=== PATIENT | female | born 1935 | race Caucasian/White ===

== ENCOUNTER 2019-10-08 16:01 | Inpatient (IN) ==
[2019-10-08] MEDS ORDERED: INFLUENZA VIRUS VACCINE 0.5 ML SYRINGE IM ONE (18:04)
[2019-10-08 20:10] LABS: Basophils % 0.8 % (0.0-0.8); Eosinophils % 0.6 % (0.00-10.9); Hematocrit 25.3 VOL% (35.7-47.0); Hemoglobin 7.6 GM/DL (12.0-16.0); Immature Granulocytes % 1.9 %; Lymphocytes # 1.2 10*3/uL (1.4-4.0); Lymphocytes % 23.6 % (21.3-54.2); Mean Corpuscular Volume 118.2 FL (87-102); Mean Platelet Volume 14.2 FL (9.6-12.0); Monocytes % 13.1 % (1.7-12.7); NRBC # 0.02 10*3/uL; Platelet Count 197 T/CUMM (130-400); Red Blood Count 2.14 MC/CUMM (3.8-5.5); Red Cell Distribution Width 15.7 % (9.3-17.3); White Blood Count 5.2 T/CUMM (4-12)
[2019-10-08 20:36] LABS: % Iron Saturation 27.4 % (18-50); Alanine Aminotransferase 19 U/L (13-56); Albumin 2.5 G/DL (3.4-5.0); Alkaline Phosphatase 59 U/L (45-117); Aspartate Amino Transferase 19 U/L (0-37); Blood Urea Nitrogen 31 MG/DL (7-18); Calcium 9.6 MG/DL (8.5-10.1); Estimated Glom Filtration Rate 35 ML/MIN; Glucose 115 MG/DL (74-106); Iron 73 UG/DL (50-170); Iron Binding Capacity 266 UG/DL (250-450); Osmolality,Calculated 288.3 MOS/KG (273-304); Total Protein 6.3 G/DL (6.4-8.3); Troponin I < 0.015 NG/ML (0.00-0.045)
[2019-10-08 20:37] LABS: Folate 9.3 NG/ML (5.4-24.0); Vitamin B12 1050 PG/ML (211-911)
[2019-10-08 20:53] LABS: Burr Cells Few; Giant Platelets Few; Hypochromasia 1+; Macrocytosis 1+; Ovalocytes Few; Platelet Estimate Adequate
[2019-10-08] MEDS: ATENOLOL 50 MG TABLET PO SCH (22:02)
[2019-10-08] MEDS: rOPINIRole 1 MG TABLET PO SCH (22:02)
[2019-10-09 00:44] LABS: Apearance,Urine CLEAR (Clear); Bilirubin,Urine Negative (Negative); Blood, Urine Negative (Negative); Glucose,Urine (UA) Negative (Negative); Hyaline Casts,Urine 1 /LPF (0-3); Ketones,Urine Negative (Negative); Mucus,Urine Occasional /LPF (Occasional); Nitrite,Urine Negative (Negative); Protein,Urine Negative; RBC,Urine 3 /HPF (0-4); Squamous Epithelial Cell,Urine Occasional /HPF (0-10); Urine Color Yellow (Yellow); Urine Specific Gravity 1.047 (1.001-1.035); Urine Urobilinogen < 2.0 EU/DL (0.2-1.0); WBC,Urine 2 /HPF (0-6)
[2019-10-09] MEDS ORDERED: FUROSEMIDE 40 MG/4 ML VIAL IV ONE (02:27)
[2019-10-09] MEDS ORDERED: hydrALAZINE 20 MG/1 ML VIAL IM PRN (02:28)
[2019-10-09] MEDS ORDERED: hydrALAZINE 20 MG/1 ML VIAL IV PRN (04:28)
[2019-10-09 05:49] LABS: Calcium 9.9 MG/DL (8.5-10.1); Osmolality,Calculated 285.4 MOS/KG (273-304)
[2019-10-09 05:54] LABS: Basophils % 0.8 % (0.0-0.8); Eosinophils % 0.8 % (0.00-10.9); Hematocrit 29.7 VOL% (35.7-47.0); Hemoglobin 9.1 GM/DL (12.0-16.0); Immature Granulocytes % 1.5 %; Immature Granulocytes Absolute 0.07 #; Lymphocytes # 1.4 10*3/uL (1.4-4.0); Lymphocytes % 29.7 % (21.3-54.2); Mean Corpuscular HGB Conc 30.6 GM/DL (32-36); Mean Corpuscular Volume 120.7 FL (87-102); Mean Platelet Volume 14.2 FL (9.6-12.0); Monocytes % 13.5 % (1.7-12.7); NRBC # 0.02 10*3/uL; Neutrophils % 53.7 % (38.7-73.9); Platelet Count 131 T/CUMM (130-400); Red Blood Count 2.46 MC/CUMM (3.8-5.5); Red Cell Distribution Width 15.9 % (9.3-17.3); White Blood Count 4.7 T/CUMM (4-12)
[2019-10-09 06:21] LABS: Platelet Estimate Decreased
[2019-10-09] MEDS ORDERED: MAGNESIUM SULF RIDER 4 GM in PREMIX 1 EACH IV PRN (07:48)
[2019-10-09] MEDS ORDERED: ERGOCALCIFEROL 50,000 UNIT CAPSULE PO SCH (09:00)
[2019-10-09] MEDS: amLODIPine 5 MG TABLET PO SCH (09:29)
[2019-10-09] MEDS: CYANOCOBALAMIN 500 MCG TABLET PO SCH (09:29)
[2019-10-09] MEDS: LOSARTAN 50 MG TABLET PO SCH (09:29)
[2019-10-09] MEDS: MAGNESIUM CHLORIDE 64 MG TABLET PO SCH (09:29)
[2019-10-09] MEDS: DULoxetine 30 MG CAPSULE PO SCH (09:29)
[2019-10-09] MEDS: PANTOPRAZOLE 40 MG TABLET PO SCH (09:29)
[2019-10-09] MEDS: ATENOLOL 50 MG TABLET PO SCH ×3 (09:30→22:30)
[2019-10-09] MEDS: MAGNESIUM SULF RIDER 2 GM in PREMIX 1 EACH IV PRN (09:30)
[2019-10-09] MEDS: VITAMIN E 1000 UNIT CAPSULE PO SCH (10:45)
[2019-10-09] MEDS: FUROSEMIDE 40 MG/4 ML VIAL IV SCH ×2 (13:07→16:04)
[2019-10-09] MEDS: rOPINIRole 1 MG TABLET PO SCH (22:25)
[2019-10-10 05:33] LABS: Basophils % 0.5 % (0.0-0.8); Eosinophils % 0.4 % (0.00-10.9); Hematocrit 27.4 VOL% (35.7-47.0); Hemoglobin 8.5 GM/DL (12.0-16.0); Immature Granulocytes % 1.3 %; Immature Granulocytes Absolute 0.07 #; Lymphocytes # 1.1 10*3/uL (1.4-4.0); Lymphocytes % 20.1 % (21.3-54.2); Mean Corpuscular Volume 115.1 FL (87-102); Mean Platelet Volume 13.6 FL (9.6-12.0); Monocytes % 15.6 % (1.7-12.7); Neutrophils % 62.1 % (38.7-73.9); Platelet Count 225 T/CUMM (130-400); Red Blood Count 2.38 MC/CUMM (3.8-5.5); Red Cell Distribution Width 15.9 % (9.3-17.3); White Blood Count 5.6 T/CUMM (4-12)
[2019-10-10 05:59] LABS: Calcium 9.5 MG/DL (8.5-10.1)
[2019-10-10 06:01] LABS: Band Neutrophils 1 % (0-10); Eosinophils 2 % (0-10); Hypochromasia 1+; Lymphocytes 21 % (20-55); Ovalocytes Slight; Platelet Estimate Adequate; Segmented Neutrophils 65 % (50-85); Total Cells Counted 100
[2019-10-10] MEDS: LOSARTAN 50 MG TABLET PO SCH (10:02)
[2019-10-10] MEDS: PANTOPRAZOLE 40 MG TABLET PO SCH (10:02)
[2019-10-10] MEDS: amLODIPine 5 MG TABLET PO SCH (10:02)
[2019-10-10] MEDS: ATENOLOL 50 MG TABLET PO SCH ×3 (10:02→21:33)
[2019-10-10] MEDS: DULoxetine 30 MG CAPSULE PO SCH (10:03)
[2019-10-10] MEDS: VITAMIN E 1000 UNIT CAPSULE PO SCH (10:03)
[2019-10-10] MEDS: CYANOCOBALAMIN 500 MCG TABLET PO SCH (10:03)
[2019-10-10] MEDS: MAGNESIUM CHLORIDE 64 MG TABLET PO SCH (10:03)
[2019-10-10] MEDS: FUROSEMIDE 40 MG/4 ML VIAL IV SCH ×2 (10:21→15:24)
[2019-10-10] MEDS: MAGNESIUM SULF RIDER 2 GM in PREMIX 1 EACH IV PRN (10:22)
[2019-10-10] MEDS: POTASSIUM CHLORIDE 20 MEQ TABLET PO PRN ×2 (10:22→12:16)
[2019-10-10] MEDS ORDERED: SODIUM CHLORIDE 0.9% 1,000 ML IV PRN (14:03)
[2019-10-10] MEDS: POTASSIUM CHLORIDE 20 MEQ TABLET PO SCH (15:25)
[2019-10-10] MEDS: rOPINIRole 1 MG TABLET PO SCH ×2 (15:27→21:33)
[2019-10-10] MEDS ORDERED: FUROSEMIDE 40 MG/4 ML VIAL IV ONE (17:39)
[2019-10-11 08:32] VITALS: BP 143/56
[2019-10-11 08:48] LABS: Basophils % 0.6 % (0.0-0.8); Eosinophils % 0.3 % (0.00-10.9); Immature Granulocytes % 1.3 %; Immature Granulocytes Absolute 0.08 #; Lymphocytes # 1.3 10*3/uL (1.4-4.0); Lymphocytes % 20.6 % (21.3-54.2); Mean Corpuscular HGB Conc 32.4 GM/DL (32-36); Mean Corpuscular Volume 104.5 FL (87-102); Mean Platelet Volume 13.7 FL (9.6-12.0); Monocytes % 15.4 % (1.7-12.7); Neutrophils % 61.8 % (38.7-73.9); Platelet Count 216 T/CUMM (130-400); Red Blood Count 3.54 MC/CUMM (3.8-5.5); Red Cell Distribution Width 20.9 % (9.3-17.3); White Blood Count 6.2 T/CUMM (4-12)
[2019-10-11] MEDS ORDERED: FUROSEMIDE 40 MG TABLET PO SCH (09:00)
[2019-10-11 09:02] LABS: Calcium 9.8 MG/DL (8.5-10.1); Osmolality,Calculated 283.5 MOS/KG (273-304)
[2019-10-11] MEDS: ATENOLOL 50 MG TABLET PO SCH (09:15)
[2019-10-11] MEDS: POTASSIUM CHLORIDE 20 MEQ TABLET PO SCH (09:16)
[2019-10-11] MEDS: VITAMIN E 1000 UNIT CAPSULE PO SCH (09:16)
[2019-10-11] MEDS: CYANOCOBALAMIN 500 MCG TABLET PO SCH (09:16)
[2019-10-11] MEDS: MAGNESIUM CHLORIDE 64 MG TABLET PO SCH (09:17)
[2019-10-11] MEDS: LOSARTAN 50 MG TABLET PO SCH (09:17)
[2019-10-11] MEDS: rOPINIRole 1 MG TABLET PO SCH (09:18)
[2019-10-11] MEDS: amLODIPine 5 MG TABLET PO SCH (09:18)
[2019-10-11] MEDS: DULoxetine 30 MG CAPSULE PO SCH (09:18)
[2019-10-11] MEDS: PANTOPRAZOLE 40 MG TABLET PO SCH (09:18)
== END 2019-10-11 11:34 | disposition home or self-care (01) | DRG 291 ==
LOC: N.TELEN 16:49
PROVIDERS: ADMIT Internal Medicine Cardiovascular Disease; ATTEND Internal Medicine Cardiovascular Disease

== ENCOUNTER 2020-02-11 12:50 | Observation (INO) ==
[2020-02-11] MEDS ORDERED: ONDANSETRON 4 MG/2 ML VIAL IV STA ×2 (13:13→14:32)
[2020-02-11] MEDS ORDERED: HYDROmorphone 2 MG/1 ML VIAL IV STA ×2 (13:13→15:28)
[2020-02-11] MEDS ORDERED: SODIUM CHLORIDE 0.9% 500 ML IV STA (13:13)
[2020-02-11] MEDS ORDERED: PIPERACILLIN/TAZOBACTAM 3,375 MG in SODIUM CHLORIDE 0.9% 100 ML IV STA (14:22)
[2020-02-11 14:28] LABS: Apearance,Urine CLEAR (Clear); Bilirubin,Urine Negative (Negative); Blood, Urine Negative (Negative); Glucose,Urine (UA) Negative (Negative); Ketones,Urine 5 mg/dL (Negative); Mucus,Urine Occasional /LPF (Occasional); Nitrite,Urine Negative (Negative); Protein,Urine Negative; RBC,Urine 1 /HPF (0-4); Urine Color Yellow (Yellow); Urine Specific Gravity 1.012 (1.001-1.035); Urine Urobilinogen < 2.0 EU/DL (0.2-1.0); WBC,Urine <1 /HPF (0-6)
[2020-02-11 14:42] LABS: Basophils % 0.4 % (0.0-0.8); Hematocrit 26.2 VOL% (35.7-47.0); Immature Granulocytes % 1.3 %; Immature Granulocytes Absolute 0.07 #; Lymphocytes # 0.4 10*3/uL (1.4-4.0); Lymphocytes % 8.1 % (21.3-54.2); Mean Corpuscular HGB Conc 30.5 GM/DL (32-36); Mean Corpuscular Volume 118.6 FL (87-102); Mean Platelet Volume 12.9 FL (9.6-12.0); Monocytes % 9.9 % (1.7-12.7); Neutrophils % 80.3 % (38.7-73.9); Platelet Count 191 T/CUMM (130-400); Red Blood Count 2.21 MC/CUMM (3.8-5.5); Red Cell Distribution Width 15.1 % (9.3-17.3); White Blood Count 5.4 T/CUMM (4-12)
[2020-02-11 15:02] LABS: Albumin 2.4 G/DL (3.4-5.0); Bilirubin,Total 0.8 MG/DL (0.2-1.0); Calcium 8.9 MG/DL (8.5-10.1); Osmolality,Calculated 280.7 MOS/KG (273-304); Total Protein 6.9 G/DL (6.4-8.3)
[2020-02-11] MEDS ORDERED: SODIUM CHLORIDE 0.9% 1,000 ML IV STA (15:06)
[2020-02-11] MEDS ORDERED: PROMETHAZINE 25 MG/1 ML VIAL IM STA (15:28)
[2020-02-11] MEDS ORDERED: SIMETHICONE CHEW 125 MG TABLET PO PRN (16:01)
[2020-02-11] MEDS ORDERED: DEXTROSE 10% 250 ML BAG IV PRN (16:01)
[2020-02-11] MEDS ORDERED: PROMETHAZINE 25 MG/1 ML VIAL IM PRN (16:01)
[2020-02-11] MEDS ORDERED: GLUCAGON 1 MG VIAL IM PRN (16:01)
[2020-02-11] MEDS ORDERED: ONDANSETRON 4 MG/2 ML VIAL IV PRN (16:01)
[2020-02-11] MEDS ORDERED: ZALEPLON 5 MG CAPSULE PO PRN (16:01)
[2020-02-11] MEDS ORDERED: ACETAMINOPHEN 325 MG TABLET PO PRN (16:01)
[2020-02-11] MEDS ORDERED: HYDROmorphone 2 MG/1 ML VIAL IV PRN (16:11)
[2020-02-11] MEDS ORDERED: SODIUM CHLORIDE 0.9% 1,000 ML IV SCH (16:30)
[2020-02-11] MEDS ORDERED: hydrALAZINE 20 MG/1 ML VIAL IV PRN (17:50)
[2020-02-11] MEDS: rOPINIRole 1 MG TABLET PO SCH (20:35)
[2020-02-11] MEDS: PIPERACILLIN/TAZOBACTAM 3,375 MG in SODIUM CHLORIDE 0.9% 100 ML IV SCH (23:39)
[2020-02-12] MEDS: PIPERACILLIN/TAZOBACTAM 3,375 MG in SODIUM CHLORIDE 0.9% 100 ML IV SCH ×3 (06:22→22:07)
[2020-02-12 07:13] LABS: Basophils % 0.5 % (0.0-0.8); Eosinophils % 0.2 % (0.00-10.9); Hematocrit 24.9 VOL% (35.7-47.0); Hemoglobin 7.4 GM/DL (12.0-16.0); Immature Granulocytes % 4.4 %; Immature Granulocytes Absolute 0.19 #; Lymphocytes # 1.1 10*3/uL (1.4-4.0); Lymphocytes % 25.1 % (21.3-54.2); Mean Corpuscular HGB Conc 29.7 GM/DL (32-36); Mean Corpuscular Volume 120.3 FL (87-102); Mean Platelet Volume 13.1 FL (9.6-12.0); Monocytes % 13.3 % (1.7-12.7); Neutrophils % 56.5 % (38.7-73.9); Platelet Count 181 T/CUMM (130-400); Red Blood Count 2.07 MC/CUMM (3.8-5.5); Red Cell Distribution Width 15.7 % (9.3-17.3); White Blood Count 4.3 T/CUMM (4-12)
[2020-02-12 07:41] LABS: Albumin 2.3 G/DL (3.4-5.0); Bilirubin,Total 0.4 MG/DL (0.2-1.0); Calcium 8.8 MG/DL (8.5-10.1); Osmolality,Calculated 279.4 MOS/KG (273-304); Platelet Estimate Normal; Total Protein 6.4 G/DL (6.4-8.3)
[2020-02-12 07:42] LABS: Anisocytosis 1+; Macrocytosis 1+
[2020-02-12 08:04] LABS: Folate 9.8 NG/ML (5.4-24.0)
[2020-02-12] MEDS: DULoxetine 30 MG CAPSULE PO SCH (09:07)
[2020-02-12] MEDS: CYANOCOBALAMIN 500 MCG TABLET PO SCH (09:07)
[2020-02-12] MEDS: rOPINIRole 1 MG TABLET PO SCH ×3 (09:07→20:38)
[2020-02-12] MEDS: FUROSEMIDE 40 MG TABLET PO SCH (09:08)
[2020-02-12] MEDS: LOSARTAN 50 MG TABLET PO SCH (09:08)
[2020-02-12] MEDS: PANTOPRAZOLE 40 MG TABLET PO SCH (09:09)
[2020-02-12] MEDS ORDERED: oxyCODONE/ACETAMINOPHEN 5-325 MG TABLET PO PRN ×2 (12:43→12:44)
[2020-02-12 13:03] LABS: Hematocrit 23.8 VOL% (35.7-47.0); Hemoglobin 7.2 GM/DL (12.0-16.0)
[2020-02-12] MEDS: oxyCODONE/ACETAMINOPHEN 5-325 MG TABLET PO PRN ×2 (13:05→20:37)
[2020-02-12] MEDS ORDERED: SODIUM CHLORIDE 0.9% 1,000 ML IV PRN (15:12)
[2020-02-13 05:20] LABS: Basophils % 0.5 % (0.0-0.8); Eosinophils # 0.1 10*3/uL (0.0-0.87); Eosinophils % 1.4 % (0.00-10.9); Hematocrit 31.1 VOL% (35.7-47.0); Hemoglobin 9.9 GM/DL (12.0-16.0); Immature Granulocytes Absolute 0.29 #; Lymphocytes # 1.1 10*3/uL (1.4-4.0); Lymphocytes % 26.5 % (21.3-54.2); Mean Corpuscular HGB Conc 31.8 GM/DL (32-36); Mean Corpuscular Volume 106.9 FL (87-102); Mean Platelet Volume 12.7 FL (9.6-12.0); Monocytes % 12.5 % (1.7-12.7); Neutrophils % 52.1 % (38.7-73.9); Platelet Count 169 T/CUMM (130-400); Red Blood Count 2.91 MC/CUMM (3.8-5.5); White Blood Count 4.2 T/CUMM (4-12)
[2020-02-13 05:46] LABS: Calcium 8.6 MG/DL (8.5-10.1); Osmolality,Calculated 281.3 MOS/KG (273-304)
[2020-02-13 05:54] LABS: Atypical Lymphocytes Few; Band Neutrophils 5 % (0-10); Eosinophils 2 % (0-10); Hypochromasia 1+; Lymphocytes 26 % (20-55); Metamyelocytes 1 %; Segmented Neutrophils 56 % (50-85); Total Cells Counted 100
[2020-02-13 05:55] LABS: Macrocytosis 1+; Platelet Estimate Adequate
[2020-02-13] MEDS: PIPERACILLIN/TAZOBACTAM 3,375 MG in SODIUM CHLORIDE 0.9% 100 ML IV SCH (06:28)
[2020-02-13] MEDS ORDERED: MAGNESIUM SULF RIDER 4 GM in PREMIX 1 EACH IV PRN (08:02)
[2020-02-13] MEDS ORDERED: POTASSIUM CHLORIDE 20 MEQ TABLET PO ONE (08:02)
[2020-02-13] MEDS ORDERED: MAGNESIUM SULF RIDER 2 GM in PREMIX 1 EACH IV PRN (08:02)
[2020-02-13] MEDS: FUROSEMIDE 40 MG TABLET PO SCH (08:59)
[2020-02-13] MEDS: LOSARTAN 50 MG TABLET PO SCH (08:59)
[2020-02-13] MEDS: DULoxetine 30 MG CAPSULE PO SCH (08:59)
[2020-02-13] MEDS: rOPINIRole 1 MG TABLET PO SCH (08:59)
[2020-02-13] MEDS: CYANOCOBALAMIN 500 MCG TABLET PO SCH (08:59)
[2020-02-13] MEDS: PANTOPRAZOLE 40 MG TABLET PO SCH (08:59)
[2020-02-13 15:48] VITALS: BP 134/53
[2020-02-14] MEDS ORDERED: ERGOCALCIFEROL 50,000 UNIT CAPSULE PO SCH (09:00)
== END 2020-02-13 17:05 | disposition home or self-care (01) ==
LOC: N.ED 12:50 → INTOOBSV 16:01 → N.EDINP 16:01 → SUATTDRO 16:01 → N.TELES 16:57
PROVIDERS: ADMIT Internal Medicine; ATTEND Internal Medicine

== ENCOUNTER 2020-05-21 08:37 | Observation (INO) ==
[2020-05-21] MEDS ORDERED: PANTOPRAZOLE 40 MG VIAL IV STA (08:49)
[2020-05-21 09:28] LABS: Basophils % 0.4 % (0.0-0.8); Eosinophils % 0.6 % (0.00-10.9); Hematocrit 25.6 VOL% (35.7-47.0); Hemoglobin 7.8 GM/DL (12.0-16.0); Immature Granulocytes % 0.4 %; Immature Granulocytes Absolute 0.02 #; Lymphocytes % 19.5 % (21.3-54.2); Mean Corpuscular HGB Conc 30.5 GM/DL (32-36); Mean Corpuscular Volume 122.5 FL (87-102); Mean Platelet Volume 13.4 FL (9.6-12.0); Monocytes % 16.9 % (1.7-12.7); Neutrophils % 62.2 % (38.7-73.9); Platelet Count 213 T/CUMM (130-400); Red Blood Count 2.09 MC/CUMM (3.8-5.5); Red Cell Distribution Width 16.4 % (9.3-17.3); White Blood Count 5.1 T/CUMM (4-12)
[2020-05-21 09:56] LABS: Eosinophils 3 % (0-10); Hypochromasia 1+; Lymphocytes 25 % (20-55); Platelet Estimate Adequate; Segmented Neutrophils 59 % (50-85); Total Cells Counted 100
[2020-05-21 09:57] LABS: Atypical Lymphocytes Few; Macrocytosis Slight
[2020-05-21 10:42] LABS: Albumin 2.7 G/DL (3.4-5.0); Bilirubin,Total 0.4 MG/DL (0.2-1.0); Calcium 9.4 MG/DL (8.5-10.1); Osmolality,Calculated 280.7 MOS/KG (273-304); Total Protein 6.6 G/DL (6.4-8.3)
[2020-05-21 11:41] LABS: INR 1.1; PT Patient Result 11.6 SECS (9.8-11.9); Partial Thromboplastin Time 26.5 SECS (23.9-33.8)
[2020-05-21] MEDS ORDERED: SODIUM CHLORIDE 0.9% 500 ML IV STA (11:48)
[2020-05-21] MEDS ORDERED: ONDANSETRON 4 MG/2 ML VIAL IV PRN (12:02)
[2020-05-21] MEDS ORDERED: DEXTROSE 50% 25 GM/50 ML VIAL IV PRN (12:02)
[2020-05-21] MEDS ORDERED: GLUCAGON 1 MG VIAL IM PRN (12:02)
[2020-05-21] MEDS ORDERED: FUROSEMIDE 20 MG/2 ML VIAL IV PRN (12:04)
[2020-05-21] MEDS ORDERED: SODIUM CHLORIDE 0.9% 1,000 ML IV PRN (12:04)
[2020-05-21 12:22] LABS: Folate 12.3 NG/ML (5.4-24.0)
[2020-05-21 15:30] LABS: Folate 22.2 NG/ML (5.4-24.0); Vitamin B12 617 PG/ML (211-911)
[2020-05-21 15:33] LABS: Basophils % 0.3 % (0.0-0.8); Eosinophils % 0.3 % (0.00-10.9); Hematocrit 20.6 VOL% (35.7-47.0); Immature Granulocytes % 0.5 %; Immature Granulocytes Absolute 0.02 #; Lymphocytes # 0.9 10*3/uL (1.4-4.0); Lymphocytes % 21.9 % (21.3-54.2); Mean Corpuscular HGB Conc 30.6 GM/DL (32-36); Mean Corpuscular Volume 121.2 FL (87-102); Mean Platelet Volume 13.4 FL (9.6-12.0); Monocytes % 16.2 % (1.7-12.7); Neutrophils % 60.8 % (38.7-73.9); Platelet Count 175 T/CUMM (130-400); Red Cell Distribution Width 16.1 % (9.3-17.3); White Blood Count 3.9 T/CUMM (4-12)
[2020-05-21 15:37] LABS: Hemoglobin 6.3 GM/DL (12.0-16.0)
[2020-05-21 16:10] LABS: Band Neutrophils 4 % (0-10); Eosinophils 1 % (0-10); Lymphocytes 20 % (20-55); Platelet Estimate Adequate; Segmented Neutrophils 62 % (50-85); Total Cells Counted 100
[2020-05-21] MEDS: rOPINIRole 1 MG TABLET PO SCH ×2 (16:43→21:15)
[2020-05-21] MEDS: PANTOPRAZOLE 40 MG TABLET PO SCH ×2 (16:43→21:14)
[2020-05-21 17:13] LABS: Sedimentation Rate-Westergren 145 MM/HR (0-30)
[2020-05-21] MEDS: oxyCODONE/ACETAMINOPHEN 5-325 MG TABLET PO PRN (17:36)
[2020-05-21] MEDS: DOCUSATE SODIUM 100 MG CAPSULE PO SCH (21:14)
[2020-05-21] MEDS: POLYETHYLENE GLYCOL POWDER 17 GM PACK PO SCH (21:14)
[2020-05-21] MEDS: CYANOCOBALAMIN 500 MCG TABLET PO SCH (21:15)
[2020-05-22] MEDS: oxyCODONE/ACETAMINOPHEN 5-325 MG TABLET PO PRN ×3 (02:32→16:15)
[2020-05-22 02:57] LABS: Basophils % 0.5 % (0.0-0.8); Eosinophils # 0.1 10*3/uL (0.0-0.87); Eosinophils % 1.4 % (0.00-10.9); Hematocrit 26.8 VOL% (35.7-47.0); Hemoglobin 8.6 GM/DL (12.0-16.0); Immature Granulocytes % 0.2 %; Immature Granulocytes Absolute 0.01 #; Lymphocytes # 1.1 10*3/uL (1.4-4.0); Lymphocytes % 26.7 % (21.3-54.2); Mean Corpuscular HGB Conc 32.1 GM/DL (32-36); Mean Corpuscular Volume 111.7 FL (87-102); Mean Platelet Volume 13.4 FL (9.6-12.0); Monocytes % 19.2 % (1.7-12.7); Platelet Count 187 T/CUMM (130-400); White Blood Count 4.3 T/CUMM (4-12)
[2020-05-22 03:03] LABS: Osmolality,Calculated 278.7 MOS/KG (273-304)
[2020-05-22 08:49] LABS: Band Neutrophils 5 % (0-10); Eosinophils 2 % (0-10); Lymphocytes 37 % (20-55); Segmented Neutrophils 47 % (50-85); Total Cells Counted 100
[2020-05-22 08:50] LABS: Atypical Lymphocytes Few; Giant Platelets Few; Macrocytosis 1+; Ovalocytes Few; Platelet Estimate Adequate; Polychromasia Slight
[2020-05-22] MEDS ORDERED: NEBIVOLOL 10 MG PO SCH (09:00)
[2020-05-22] MEDS: FUROSEMIDE 20 MG TABLET PO SCH (09:03)
[2020-05-22] MEDS: DULoxetine 30 MG CAPSULE PO SCH (09:03)
[2020-05-22] MEDS: LOSARTAN 50 MG TABLET PO SCH (09:03)
[2020-05-22] MEDS: PANTOPRAZOLE 40 MG TABLET PO SCH ×2 (09:03→20:59)
[2020-05-22] MEDS: POLYETHYLENE GLYCOL POWDER 17 GM PACK PO SCH ×2 (09:04→20:58)
[2020-05-22] MEDS: rOPINIRole 1 MG TABLET PO SCH ×2 (13:53→20:58)
[2020-05-22] MEDS: DOCUSATE SODIUM 100 MG CAPSULE PO SCH (20:57)
[2020-05-22] MEDS: CYANOCOBALAMIN 500 MCG TABLET PO SCH (20:58)
[2020-05-23 05:23] LABS: Basophils % 0.4 % (0.0-0.8); Eosinophils # 0.1 10*3/uL (0.0-0.87); Eosinophils % 1.5 % (0.00-10.9); Hematocrit 28.5 VOL% (35.7-47.0); Hemoglobin 9.3 GM/DL (12.0-16.0); Immature Granulocytes % 0.4 %; Immature Granulocytes Absolute 0.02 #; Lymphocytes % 18.7 % (21.3-54.2); Mean Corpuscular HGB Conc 32.6 GM/DL (32-36); Mean Corpuscular Volume 110.5 FL (87-102); Mean Platelet Volume 12.8 FL (9.6-12.0); Monocytes % 14.7 % (1.7-12.7); Neutrophils % 64.3 % (38.7-73.9); Platelet Count 191 T/CUMM (130-400); Red Blood Count 2.58 MC/CUMM (3.8-5.5); Red Cell Distribution Width 18.9 % (9.3-17.3); White Blood Count 5.3 T/CUMM (4-12)
[2020-05-23] MEDS: LOSARTAN 50 MG TABLET PO SCH (08:01)
[2020-05-23] MEDS: DULoxetine 30 MG CAPSULE PO SCH (08:01)
[2020-05-23] MEDS: POLYETHYLENE GLYCOL POWDER 17 GM PACK PO SCH ×2 (08:01→21:16)
[2020-05-23] MEDS: FUROSEMIDE 20 MG TABLET PO SCH (08:01)
[2020-05-23] MEDS: PANTOPRAZOLE 40 MG TABLET PO SCH ×2 (08:01→21:15)
[2020-05-23] MEDS: oxyCODONE/ACETAMINOPHEN 5-325 MG TABLET PO PRN ×2 (08:02→21:17)
[2020-05-23] MEDS: rOPINIRole 1 MG TABLET PO SCH ×2 (15:24→21:16)
[2020-05-23] MEDS: DOCUSATE SODIUM 100 MG CAPSULE PO SCH (21:15)
[2020-05-23] MEDS: CYANOCOBALAMIN 500 MCG TABLET PO SCH (21:16)
[2020-05-24] MEDS: NEBIVOLOL 10 MG TABLET PO SCH ×2 (01:09→09:19)
[2020-05-24 05:51] LABS: Basophils % 0.4 % (0.0-0.8); Eosinophils # 0.1 10*3/uL (0.0-0.87); Eosinophils % 1.3 % (0.00-10.9); Hematocrit 30.2 VOL% (35.7-47.0); Hemoglobin 9.5 GM/DL (12.0-16.0); Immature Granulocytes % 0.2 %; Immature Granulocytes Absolute 0.01 #; Lymphocytes # 1.2 10*3/uL (1.4-4.0); Lymphocytes % 24.9 % (21.3-54.2); Mean Corpuscular HGB Conc 31.5 GM/DL (32-36); Mean Corpuscular Volume 113.5 FL (87-102); Mean Platelet Volume 13.3 FL (9.6-12.0); Neutrophils % 59.2 % (38.7-73.9); Platelet Count 199 T/CUMM (130-400); Red Blood Count 2.66 MC/CUMM (3.8-5.5); Red Cell Distribution Width 17.6 % (9.3-17.3); White Blood Count 4.8 T/CUMM (4-12)
[2020-05-24 06:00] LABS: Calcium 9.9 MG/DL (8.5-10.1); Osmolality,Calculated 277.8 MOS/KG (273-304)
[2020-05-24 06:16] LABS: Hypochromasia 1+; Microcytosis Slight; Platelet Estimate Adequate
[2020-05-24] MEDS ORDERED: LACTATED RINGERS 1,000 ML IV SCH (08:00)
[2020-05-24] MEDS: oxyCODONE/ACETAMINOPHEN 5-325 MG TABLET PO PRN (09:17)
[2020-05-24] MEDS: LOSARTAN 50 MG TABLET PO SCH (09:19)
[2020-05-24] MEDS ORDERED: LIDOCAINE 2% 5 ML VIAL ONE (10:00)
[2020-05-24] MEDS ORDERED: ETOMIDATE 20 MG/10 ML VIAL IV ONE (10:00)
[2020-05-24] MEDS ORDERED: propofoL 200 MG/20 ML VIAL IV ONE (10:00)
[2020-05-24 10:15] LABS: Hemoglobin A1 (Alkaline) 97.2 % (96.5-98.5); Hemoglobin A2 (Alkaline) 2.8 % (1.5-3.5)
[2020-05-24] MEDS: DULoxetine 30 MG CAPSULE PO SCH (13:30)
[2020-05-24] MEDS: FUROSEMIDE 20 MG TABLET PO SCH (13:30)
[2020-05-24] MEDS: rOPINIRole 1 MG TABLET PO SCH (13:31)
[2020-05-24] MEDS: PANTOPRAZOLE 40 MG TABLET PO SCH (13:31)
[2020-05-24] MEDS: POLYETHYLENE GLYCOL POWDER 17 GM PACK PO SCH (13:31)
[2020-05-24 15:12] VITALS: BP 112/48
[2020-05-25 07:02] LABS: Total Protein (Chem) 6.1 G/DL (6.4-8.3)
[2020-05-25 09:31] LABS: Albumin (SPE) Rel % 49.6 %; Alpha 1 (SPE) 0.4 G/DL (0.1-0.4); Alpha 1 (SPE) Rel % 6.3 %; Alpha 2 (SPE) 0.8 G/DL (0.4-1.0); Alpha 2 (SPE) Rel % 13.6 %; Beta (SPE) 0.6 G/DL (0.5-1.1); Beta (SPE) Rel % 9.6 %; Gamma (SPE) 1.3 G/DL (0.7-1.7)
[2020-05-25 09:38] LABS: Gamma (SPE) Rel % 20.9 %
== END 2020-05-24 17:05 | disposition home or self-care (01) ==
LOC: N.ED 08:37 → N.EDINP 08:37 → SUATTDRO 12:02 → N.3E 14:00
PROVIDERS: ADMIT Internal Medicine; ATTEND Internal Medicine Geriatric Medicine

== ENCOUNTER 2021-02-06 20:07 | Inpatient (IN) ==
[2021-02-06 20:52] LABS: Basophils # 0.1 10*3/uL (0.0-0.2); Basophils % 0.4 % (0.0-0.8); Eosinophils % 0.1 % (0.00-10.9); Hematocrit 28.9 VOL% (35.7-47.0); Immature Granulocytes % 10.2 %; Immature Granulocytes Absolute 1.47 #; Lymphocytes # 1.9 10*3/uL (1.4-4.0); Mean Corpuscular HGB Conc 31.1 GM/DL (32-36); Mean Corpuscular Volume 128.4 FL (87-102); Monocytes % 6.6 % (1.7-12.7); Neutrophils % 69.7 % (38.7-73.9); Platelet Count 231 T/CUMM (130-400); Red Blood Count 2.25 MC/CUMM (3.8-5.5); Red Cell Distribution Width 18.6 % (9.3-17.3); White Blood Count 14.4 T/CUMM (4-12)
[2021-02-06] MEDS ORDERED: SODIUM CHLORIDE 0.9% 500 ML IV STA (21:01)
[2021-02-06] MEDS ORDERED: ONDANSETRON 4 MG/2 ML VIAL IV STA (21:01)
[2021-02-06] MEDS ORDERED: MORPHINE 4 MG/1 ML VIAL IV STA (21:01)
[2021-02-06 21:03] LABS: PT Patient Result 11.1 SECS (9.8-11.9); Partial Thromboplastin Time 25.8 SECS (23.9-33.8)
[2021-02-06 21:11] LABS: Anisocytosis 1+; Band Neutrophils 4 % (0-10); Lymphocytes 17 % (20-55); Segmented Neutrophils 74 % (50-85); Total Cells Counted 100
[2021-02-06 21:12] LABS: Elliptocytes Few; Hypochromasia Slight
[2021-02-06 21:13] LABS: Platelet Estimate Adequate
[2021-02-06 21:20] LABS: Albumin 3.4 G/DL (3.4-5.0); Bilirubin,Total 0.9 MG/DL (0.2-1.0); Calcium 9.2 MG/DL (8.5-10.1); Osmolality,Calculated 287.1 MOS/KG (273-304); Potassium 3.9 MMOL/L (3.5-5.1); Total Protein 7.3 G/DL (6.4-8.2)
[2021-02-06] MEDS ORDERED: DILTIAZEM 50 MG/10 ML VIAL IV STA (22:12)
[2021-02-06] MEDS ORDERED: ENOXAPARIN 60 MG/0.6 ML SYRINGE SUBCUT SCH (23:30)
[2021-02-06] MEDS ORDERED: DILTIAZEM 25 MG/5 ML VIAL IV ONE (23:37)
[2021-02-06] MEDS ORDERED: MAGNESIUM SULF RIDER 2 GM in PREMIX 1 EACH IV PRN (23:47)
[2021-02-06] MEDS ORDERED: MAGNESIUM SULF RIDER 4 GM in PREMIX 1 EACH IV PRN (23:47)
[2021-02-06] MEDS ORDERED: DEXTROSE 50% 25 GM/50 ML VIAL IV PRN (23:47)
[2021-02-06] MEDS ORDERED: MORPHINE 4 MG/1 ML VIAL IV PRN (23:47)
[2021-02-06] MEDS ORDERED: ACETAMINOPHEN 325 MG TABLET PO PRN (23:47)
[2021-02-06] MEDS ORDERED: GLUCAGON 1 MG VIAL IM PRN (23:47)
[2021-02-06] MEDS ORDERED: ONDANSETRON 4 MG/2 ML VIAL IV PRN (23:47)
[2021-02-07] MEDS: rOPINIRole 1 MG TABLET PO SCH ×2 (00:40→20:18)
[2021-02-07] MEDS: METOPROLOL TARTRATE 50 MG TABLET PO SCH ×3 (00:40→20:18)
[2021-02-07 02:30] LABS: Bilirubin,Urine Negative (Negative); Blood, Urine Negative (Negative); Glucose,Urine (UA) Negative (Negative); Ketones,Urine Negative (Negative); Mucus,Urine Occasional /LPF (Occasional); Nitrite,Urine Negative (Negative); Protein,Urine Negative; RBC,Urine 1 /HPF (0-4); Urine Appearance CLEAR (Clear); Urine Color Yellow (Yellow); Urine Specific Gravity 1.047 (1.001-1.035); Urine Urobilinogen < 2.0 EU/DL (0.2-1.0); WBC,Urine <1 /HPF (0-6)
[2021-02-07] MEDS: FUROSEMIDE 40 MG/4 ML VIAL IV SCH ×2 (07:58→15:57)
[2021-02-07 08:11] LABS: Basophils % 0.3 % (0.0-0.8); Hemoglobin 7.7 GM/DL (12.0-16.0); Immature Granulocytes % 9.2 %; Immature Granulocytes Absolute 0.97 #; Lymphocytes # 1.2 10*3/uL (1.4-4.0); Lymphocytes % 11.6 % (21.3-54.2); Mean Corpuscular HGB Conc 30.8 GM/DL (32-36); Mean Corpuscular Volume 127.6 FL (87-102); Mean Platelet Volume 12.7 FL (9.6-12.0); Monocytes % 7.6 % (1.7-12.7); Neutrophils % 71.3 % (38.7-73.9); Platelet Count 160 T/CUMM (130-400); Red Blood Count 1.96 MC/CUMM (3.8-5.5); Red Cell Distribution Width 18.8 % (9.3-17.3); White Blood Count 10.6 T/CUMM (4-12)
[2021-02-07 08:25] LABS: Albumin 2.6 G/DL (3.4-5.0); Bilirubin,Total 1.3 MG/DL (0.2-1.0); Calcium 8.4 MG/DL (8.5-10.1); Osmolality,Calculated 286.1 MOS/KG (273-304); Potassium 4.6 MMOL/L (3.5-5.1); Risk Ratio 1.92; Total Protein 5.6 G/DL (6.4-8.2); VLDL CHOLESTEROL 13.4 MG/DL
[2021-02-07 08:36] LABS: Hypochromasia 2+; Lymphocytes 10 % (20-55); Microcytosis 1+; Platelet Estimate Adequate; Segmented Neutrophils 81 % (50-85); Total Cells Counted 100
[2021-02-07] MEDS: ASPIRIN CHEW 81 MG TABLET PO SCH (09:00)
[2021-02-07] MEDS: DULoxetine 30 MG CAPSULE PO SCH (09:00)
[2021-02-07] MEDS: predniSONE 20 MG TABLET PO SCH (09:00)
[2021-02-07] MEDS: PANTOPRAZOLE 40 MG TABLET PO SCH (09:01)
[2021-02-07] MEDS ORDERED: MAGNESIUM SULF RIDER 2 GM in PREMIX 1 EACH IV ONE (11:33)
[2021-02-07] MEDS: oxyCODONE/ACETAMINOPHEN 5-325 MG TABLET PO PRN ×2 (11:46→20:18)
[2021-02-07] MEDS: ENOXAPARIN 60 MG/0.6 ML SYRINGE SUBCUT SCH (14:38)
[2021-02-07] MEDS: ATORVASTATIN 40 MG TABLET PO SCH (20:19)
[2021-02-07] MEDS ORDERED: FUROSEMIDE 40 MG/4 ML VIAL IV ONE (23:30)
[2021-02-08] MEDS: ENOXAPARIN 60 MG/0.6 ML SYRINGE SUBCUT SCH (02:37)
[2021-02-08 05:11] LABS: Basophils % 0.2 % (0.0-0.8); Eosinophils % 0.5 % (0.00-10.9); Hemoglobin 7.3 GM/DL (12.0-16.0); Immature Granulocytes % 0.2 %; Immature Granulocytes Absolute 0.01 #; Lymphocytes # 1.1 10*3/uL (1.4-4.0); Lymphocytes % 26.4 % (21.3-54.2); Mean Corpuscular HGB Conc 31.7 GM/DL (32-36); Mean Corpuscular Volume 126.4 FL (87-102); Mean Platelet Volume 13.5 FL (9.6-12.0); Monocytes % 8.2 % (1.7-12.7); Neutrophils % 64.5 % (38.7-73.9); Red Blood Count 1.82 MC/CUMM (3.8-5.5)
[2021-02-08 05:12] LABS: Platelet Count 105 T/CUMM (130-400)
[2021-02-08 05:33] LABS: Band Neutrophils 1 % (0-10); Hypochromasia 1+; Lymphocytes 23 % (20-55); Macrocytosis 2+; Platelet Estimate Adequate; Segmented Neutrophils 71 % (50-85); Total Cells Counted 100
[2021-02-08 05:34] LABS: Calcium 8.6 MG/DL (8.5-10.1); Osmolality,Calculated 286.3 MOS/KG (273-304); Potassium 3.8 MMOL/L (3.5-5.1)
[2021-02-08] MEDS ORDERED: ENOXAPARIN 40 MG/0.4 ML SYRINGE SUBCUT SCH (09:00)
[2021-02-08] MEDS ORDERED: DULoxetine 30 MG CAPSULE PO SCH (09:00)
[2021-02-08] MEDS: predniSONE 20 MG TABLET PO SCH (09:19)
[2021-02-08] MEDS: ASPIRIN CHEW 81 MG TABLET PO SCH (09:19)
[2021-02-08] MEDS: PANTOPRAZOLE 40 MG TABLET PO SCH (09:19)
[2021-02-08] MEDS: FUROSEMIDE 40 MG/4 ML VIAL IV SCH ×2 (09:19→16:34)
[2021-02-08] MEDS: DULoxetine 30 MG CAPSULE PO SCH (09:19)
[2021-02-08] MEDS: METOPROLOL TARTRATE 50 MG TABLET PO SCH ×2 (09:20→20:41)
[2021-02-08] MEDS ORDERED: ALUM/MAG/SIMETH/LIDO VISC 1:1 30 ML BOTTLE PO ONE (09:57)
[2021-02-08] MEDS ORDERED: SODIUM CHLORIDE 0.9% 1,000 ML IV PRN (10:18)
[2021-02-08 10:32] LABS: % Iron Saturation 46.3 % (18-50); Ferritin 1267.4 ng/ml (8-252)
[2021-02-08 10:38] LABS: Basophils % 0.4 % (0.0-0.8); Eosinophils # 0.1 10*3/uL (0.0-0.87); Eosinophils % 1.2 % (0.00-10.9); Hematocrit 29.5 VOL% (35.7-47.0); Immature Granulocytes % 0.4 %; Immature Granulocytes Absolute 0.02 #; Lymphocytes # 1.4 10*3/uL (1.4-4.0); Lymphocytes % 27.9 % (21.3-54.2); Mean Corpuscular HGB Conc 31.9 GM/DL (32-36); Mean Corpuscular Volume 127.2 FL (87-102); Mean Platelet Volume 13.9 FL (9.6-12.0); Monocytes % 8.3 % (1.7-12.7); Neutrophils % 61.8 % (38.7-73.9); Red Cell Distribution Width 18.2 % (9.3-17.3); White Blood Count 5.2 T/CUMM (4-12)
[2021-02-08 10:42] LABS: Hemoglobin 9.4 GM/DL (12.0-16.0); Platelet Count 158 T/CUMM (130-400); Red Blood Count 2.32 MC/CUMM (3.8-5.5)
[2021-02-08 11:01] LABS: Band Neutrophils 9 % (0-10); Eosinophils 2 % (0-10); Lymphocytes 28 % (20-55); Macrocytosis 2+; Nucleated Red Blood Cells 1 (0-5); Platelet Estimate Normal; Segmented Neutrophils 53 % (50-85); Smudge Cells Few; Total Cells Counted 100
[2021-02-08 11:02] LABS: Anisocytosis 2+
[2021-02-08 11:03] LABS: Folate > 24.0 NG/ML (5.38-24.0); Vitamin B12 941 PG/ML (211-911)
[2021-02-08] MEDS: rOPINIRole 1 MG TABLET PO SCH (20:41)
[2021-02-08] MEDS: ATORVASTATIN 40 MG TABLET PO SCH (20:41)
[2021-02-09 05:06] LABS: Basophils % 0.2 % (0.0-0.8); Eosinophils % 0.5 % (0.00-10.9); Hematocrit 25.6 VOL% (35.7-47.0); Hemoglobin 8.2 GM/DL (12.0-16.0); Immature Granulocytes % 7.4 %; Immature Granulocytes Absolute 0.31 #; Lymphocytes # 1.4 10*3/uL (1.4-4.0); Lymphocytes % 32.3 % (21.3-54.2); Mean Corpuscular Volume 123.1 FL (87-102); Mean Platelet Volume 14.1 FL (9.6-12.0); Monocytes % 8.1 % (1.7-12.7); Neutrophils % 51.5 % (38.7-73.9); Red Blood Count 2.08 MC/CUMM (3.8-5.5); Red Cell Distribution Width 17.7 % (9.3-17.3); White Blood Count 4.2 T/CUMM (4-12)
[2021-02-09 05:10] LABS: Platelet Count 125 T/CUMM (130-400)
[2021-02-09 05:18] LABS: Osmolality,Calculated 287.4 MOS/KG (273-304); Potassium 4.2 MMOL/L (3.5-5.1)
[2021-02-09 05:25] LABS: Ferritin 1425.9 ng/ml (8-252)
[2021-02-09 05:34] LABS: Atypical Lymphocytes Few; Band Neutrophils 1 % (0-10); Eosinophils 2 % (0-10); Hypochromasia 1+; Lymphocytes 34 % (20-55); Metamyelocytes 1 %; Segmented Neutrophils 57 % (50-85); Total Cells Counted 100
[2021-02-09 05:35] LABS: Microcytosis 1+; Platelet Estimate Adequate; Polychromasia Slight
[2021-02-09] MEDS: METOPROLOL TARTRATE 50 MG TABLET PO SCH ×2 (08:57→20:27)
[2021-02-09] MEDS: ASPIRIN CHEW 81 MG TABLET PO SCH (08:57)
[2021-02-09] MEDS: predniSONE 20 MG TABLET PO SCH (08:58)
[2021-02-09] MEDS: PANTOPRAZOLE 40 MG TABLET PO SCH (08:58)
[2021-02-09] MEDS: FUROSEMIDE 40 MG/4 ML VIAL IV SCH ×2 (09:00→15:33)
[2021-02-09] MEDS: DULoxetine 20 MG CAPSULE PO SCH (09:45)
[2021-02-09] MEDS: oxyCODONE/ACETAMINOPHEN 5-325 MG TABLET PO PRN (11:40)
[2021-02-09] MEDS: LOSARTAN 25 MG TABLET PO SCH ×2 (13:46→20:26)
[2021-02-09] MEDS ORDERED: ZALEPLON 5 MG CAPSULE PO PRN (17:40)
[2021-02-09] MEDS: rOPINIRole 1 MG TABLET PO SCH (20:26)
[2021-02-09] MEDS: ATORVASTATIN 40 MG TABLET PO SCH (20:27)
[2021-02-10] MEDS: oxyCODONE/ACETAMINOPHEN 5-325 MG TABLET PO PRN (02:03)
[2021-02-10 05:20] LABS: Basophils % 0.2 % (0.0-0.8); Eosinophils % 0.2 % (0.00-10.9); Hematocrit 27.2 VOL% (35.7-47.0); Hemoglobin 8.6 GM/DL (12.0-16.0); Immature Granulocytes Absolute 0.04 #; Lymphocytes # 1.4 10*3/uL (1.4-4.0); Lymphocytes % 34.5 % (21.3-54.2); Mean Corpuscular HGB Conc 31.6 GM/DL (32-36); Mean Corpuscular Volume 125.9 FL (87-102); Mean Platelet Volume 13.8 FL (9.6-12.0); Monocytes % 10.3 % (1.7-12.7); Neutrophils % 53.8 % (38.7-73.9); Platelet Count 139 T/CUMM (130-400); Red Blood Count 2.16 MC/CUMM (3.8-5.5); Red Cell Distribution Width 17.5 % (9.3-17.3); White Blood Count 4.1 T/CUMM (4-12)
[2021-02-10 05:35] LABS: Calcium 8.8 MG/DL (8.5-10.1); Osmolality,Calculated 287.4 MOS/KG (273-304)
[2021-02-10 05:52] LABS: Band Neutrophils 1 % (0-10); Eosinophils 1 % (0-10); Lymphocytes 34 % (20-55); Platelet Estimate Normal; Segmented Neutrophils 58 % (50-85)
[2021-02-10 05:53] LABS: Hypochromasia Slight; Macrocytosis 1+; Total Cells Counted 100
[2021-02-10 06:02] LABS: Total Protein 6.5 G/DL (6.4-8.2)
[2021-02-10 09:36] LABS: Albumin (SPE) 3.9 G/DL (3.2-5.3); Albumin (SPE) Rel % 60.4 %; Alpha 1 (SPE) 0.3 G/DL (0.1-0.4); Alpha 1 (SPE) Rel % 4.2 %; Alpha 2 (SPE) 0.7 G/DL (0.4-1.0); Alpha 2 (SPE) Rel % 10.3 %; Beta (SPE) 0.6 G/DL (0.5-1.1); Total Protein (Chem) 6.5 G/DL (6.4-8.3)
[2021-02-10 09:37] LABS: Gamma (SPE) Rel % 16.1 %
[2021-02-10] MEDS: LACTATED RINGERS 1,000 ML IV SCH (10:49)
[2021-02-10] MEDS ORDERED: POTASSIUM CHLORIDE RIDER 10 MEQ in PREMIX 1 EACH IV PRN (11:17)
[2021-02-10] MEDS ORDERED: MAGNESIUM SULF RIDER 2 GM in PREMIX 1 EACH IV PRN (11:17)
[2021-02-10] MEDS: PANTOPRAZOLE 40 MG TABLET PO SCH (14:49)
[2021-02-10] MEDS: LOSARTAN 25 MG TABLET PO SCH ×2 (14:49→21:21)
[2021-02-10] MEDS: predniSONE 20 MG TABLET PO SCH (14:49)
[2021-02-10] MEDS: METOPROLOL TARTRATE 50 MG TABLET PO SCH ×2 (14:49→21:22)
[2021-02-10] MEDS: DULoxetine 20 MG CAPSULE PO SCH (14:52)
[2021-02-10] MEDS: ASPIRIN CHEW 81 MG TABLET PO SCH (14:52)
[2021-02-10] MEDS: FUROSEMIDE 40 MG/4 ML VIAL IV SCH (14:53)
[2021-02-10] MEDS: FUROSEMIDE 40 MG TABLET PO SCH (16:36)
[2021-02-10] MEDS: rOPINIRole 1 MG TABLET PO SCH (21:21)
[2021-02-10] MEDS: ATORVASTATIN 40 MG TABLET PO SCH (21:22)
[2021-02-11] MEDS: oxyCODONE/ACETAMINOPHEN 5-325 MG TABLET PO PRN (01:47)
[2021-02-11 04:46] LABS: Basophils % 0.2 % (0.0-0.8); Hematocrit 29.4 VOL% (35.7-47.0); Hemoglobin 9.7 GM/DL (12.0-16.0); Immature Granulocytes % 9.4 %; Immature Granulocytes Absolute 0.46 #; Lymphocytes # 1.3 10*3/uL (1.4-4.0); Lymphocytes % 27.3 % (21.3-54.2); Mean Corpuscular Volume 123.5 FL (87-102); Mean Platelet Volume 13.6 FL (9.6-12.0); Neutrophils % 55.1 % (38.7-73.9); Platelet Count 183 T/CUMM (130-400); Red Blood Count 2.38 MC/CUMM (3.8-5.5); Red Cell Distribution Width 17.4 % (9.3-17.3); White Blood Count 4.9 T/CUMM (4-12)
[2021-02-11 05:18] LABS: Band Neutrophils 3 % (0-10); Lymphocytes 26 % (20-55); Segmented Neutrophils 66 % (50-85); Total Cells Counted 100
[2021-02-11 05:19] LABS: Atypical Lymphocytes Few
[2021-02-11 05:20] LABS: Anisocytosis 1+; Macrocytosis 1+; Platelet Estimate Adequate
[2021-02-11 05:21] LABS: Calcium 9.2 MG/DL (8.5-10.1); Osmolality,Calculated 284.7 MOS/KG (273-304); Potassium 4.3 MMOL/L (3.5-5.1)
[2021-02-11] MEDS: FUROSEMIDE 40 MG TABLET PO SCH ×2 (09:19→16:22)
[2021-02-11] MEDS: PANTOPRAZOLE 40 MG TABLET PO SCH (09:19)
[2021-02-11] MEDS: METOPROLOL TARTRATE 50 MG TABLET PO SCH (09:19)
[2021-02-11] MEDS: ASPIRIN CHEW 81 MG TABLET PO SCH (09:19)
[2021-02-11] MEDS: LOSARTAN 25 MG TABLET PO SCH (09:19)
[2021-02-11] MEDS: DULoxetine 20 MG CAPSULE PO SCH (09:19)
[2021-02-11] MEDS: predniSONE 20 MG TABLET PO SCH (09:20)
[2021-02-11] MEDS: LACTATED RINGERS 1,000 ML IV SCH (11:52)
[2021-02-11] MEDS: SODIUM CHLORIDE 0.45% 1,000 ML IV SCH ×2 (12:17→16:22)
[2021-02-11] MEDS ORDERED: DIAZEPAM 5 MG TABLET PO ONE (14:00)
[2021-02-11] MEDS ORDERED: diphenhydrAMINE CAP 50 MG CAPSULE PO ONE (14:00)
[2021-02-11] MEDS: rOPINIRole 1 MG TABLET PO SCH ×2 (14:10→20:55)
[2021-02-11] MEDS ORDERED: HEPARIN/NACL 0.9% 2 UNITS/ML 1,000 ML IV ONE (14:38)
[2021-02-11] MEDS ORDERED: LIDOCAINE 1% 20 ML VIAL ONE (14:38)
[2021-02-11] MEDS ORDERED: fentaNYL 100 MCG/2 ML VIAL ONE (16:13)
[2021-02-11] MEDS ORDERED: MIDAZOLAM 2 MG/2 ML VIAL ONE (16:13)
[2021-02-11] MEDS: ATORVASTATIN 40 MG TABLET PO SCH (20:55)
[2021-02-11] MEDS: METOPROLOL TARTRATE 25 MG TABLET PO SCH (20:55)
[2021-02-12 06:53] LABS: Basophils % 0.6 % (0.0-0.8); Eosinophils % 0.2 % (0.00-10.9); Hematocrit 29.1 VOL% (35.7-47.0); Hemoglobin 9.4 GM/DL (12.0-16.0); Immature Granulocytes % 8.8 %; Immature Granulocytes Absolute 0.55 #; Lymphocytes # 1.8 10*3/uL (1.4-4.0); Lymphocytes % 29.4 % (21.3-54.2); Mean Corpuscular HGB Conc 32.3 GM/DL (32-36); Mean Corpuscular Volume 124.4 FL (87-102); Mean Platelet Volume 14.5 FL (9.6-12.0); Monocytes % 9.6 % (1.7-12.7); Neutrophils % 51.4 % (38.7-73.9); Platelet Count 153 T/CUMM (130-400); Red Blood Count 2.34 MC/CUMM (3.8-5.5); Red Cell Distribution Width 17.7 % (9.3-17.3); White Blood Count 6.3 T/CUMM (4-12)
[2021-02-12 07:07] LABS: Calcium 8.8 MG/DL (8.5-10.1); Osmolality,Calculated 281.8 MOS/KG (273-304); Potassium 4.3 MMOL/L (3.5-5.1)
[2021-02-12 08:17] LABS: Anisocytosis 2+; Atypical Lymphocytes Few; Band Neutrophils 7 % (0-10); Eosinophils 1 % (0-10); Lymphocytes 34 % (20-55); Macrocytosis 1+; Myelocytes 2 %; Platelet Estimate Normal; Segmented Neutrophils 48 % (50-85); Total Cells Counted 100
[2021-02-12] MEDS ORDERED: FUROSEMIDE 20 MG TABLET PO SCH (09:00)
[2021-02-12] MEDS ORDERED: LOSARTAN 25 MG TABLET PO SCH (09:00)
[2021-02-12] MEDS: LACTATED RINGERS 1,000 ML IV SCH (09:35)
[2021-02-12] MEDS: DULoxetine 20 MG CAPSULE PO SCH (09:54)
[2021-02-12] MEDS: PANTOPRAZOLE 40 MG TABLET PO SCH (09:54)
[2021-02-12] MEDS: ASPIRIN CHEW 81 MG TABLET PO SCH (09:54)
[2021-02-12] MEDS: predniSONE 20 MG TABLET PO SCH (09:54)
[2021-02-12] MEDS: oxyCODONE/ACETAMINOPHEN 5-325 MG TABLET PO PRN (09:59)
[2021-02-12] MEDS: METOPROLOL TARTRATE 25 MG TABLET PO SCH (10:14)
[2021-02-12 12:13] VITALS: BP 109/55
== END 2021-02-12 15:07 | disposition home health service (06) | DRG 287 ==
LOC: N.ED 20:07 → N.EDINP 23:03 → SUATTDRO 23:03 → INTOOBSV 23:03 → N.EDINP 02-07 15:00 → N.TELEN 02-07 15:19 → SUATTDRO 02-08 11:00
PROVIDERS: ADMIT Internal Medicine Geriatric Medicine; ATTEND Internal Medicine
PROC: CLCCHCL (ICD-10-PCS; 2021-02-11 15:15)

== ENCOUNTER 2021-08-28 19:02 | Inpatient (IN) ==
[2021-08-28] MEDS ORDERED: ONDANSETRON 4 MG/2 ML VIAL IV STA (19:20)
[2021-08-28] MEDS ORDERED: SODIUM CHLORIDE 0.9% 1,000 ML IV STA (19:20)
[2021-08-28] MEDS ORDERED: ACETAMINOPHEN 500 MG TABLET PO STA (19:22)
[2021-08-28] MEDS ORDERED: MORPHINE 2 MG/1 ML SYRINGE IV STA (19:48)
[2021-08-28 21:05] LABS: Basophils % 0.2 % (0.0-0.8); Hematocrit 21.9 VOL% (35.7-47.0); Hemoglobin 6.8 GM/DL (12.0-16.0); Immature Granulocytes % 0.9 %; Immature Granulocytes Absolute 0.05 #; Lymphocytes # 1.4 10*3/uL (1.4-4.0); Lymphocytes % 23.6 % (21.3-54.2); Mean Corpuscular HGB Conc 31.1 GM/DL (32-36); Mean Corpuscular Volume 115.3 FL (87-102); Mean Platelet Volume 12.3 FL (9.6-12.0); Monocytes % 8.7 % (1.7-12.7); Neutrophils % 66.6 % (38.7-73.9); Platelet Count 167 T/CUMM (130-400); Red Cell Distribution Width 24.5 % (9.3-17.3); White Blood Count 5.9 T/CUMM (4-12)
[2021-08-28 21:25] LABS: Albumin 2.5 G/DL (3.4-5.0); Bilirubin,Total 1.1 MG/DL (0.20-1.00); Calcium 8.7 MG/DL (8.5-10.1); Osmolality,Calculated 283.3 MOS/KG (273-304); Potassium 4.2 MMOL/L (3.5-5.1); Total Protein 7.1 G/DL (6.4-8.2)
[2021-08-28 21:33] LABS: Bacteria,Urine Occasional /HPF (Few); Bilirubin,Urine Negative (Negative); Blood, Urine Negative (Negative); Glucose,Urine (UA) Negative (Negative); Ketones,Urine Negative (Negative); Mucus,Urine Occasional /LPF (Occasional); Nitrite,Urine Negative (Negative); Protein,Urine Negative; RBC,Urine <1 /HPF (0-4); Squamous Epithelial Cell,Urine Occasional /HPF (0-10); Urine Appearance CLEAR (Clear); Urine Color Yellow (Yellow); Urine Specific Gravity 1.014 (1.001-1.035); Urine Urobilinogen < 2.0 EU/DL (0.2-1.0)
[2021-08-28 21:38] LABS: Band Neutrophils 3 % (0-10); Lymphocytes 17 % (20-55); Metamyelocytes 3 %; Segmented Neutrophils 66 % (50-85); Total Cells Counted 100
[2021-08-28 21:39] LABS: Anisocytosis 2+; Hypochromasia 1+; Platelet Estimate Adequate
[2021-08-28 21:40] LABS: Schistocytes Few
[2021-08-28] MEDS ORDERED: DICYCLOMINE 20 MG/2 ML AMP IM ONE (22:07)
[2021-08-28] MEDS ORDERED: DICYCLOMINE 20 MG/2 ML AMP IM STA (22:19)
[2021-08-29] MEDS ORDERED: PIPERACILLIN/TAZOBACTAM 3,375 MG in SODIUM CHLORIDE 0.9% 100 ML IV STA (00:23)
[2021-08-29] MEDS ORDERED: GLUCAGON 1 MG VIAL IM PRN (01:08)
[2021-08-29] MEDS ORDERED: SODIUM CHLORIDE 0.9% 1,000 ML IV PRN (01:08)
[2021-08-29] MEDS ORDERED: DEXTROSE 50% 25 GM/50 ML VIAL IV PRN (01:08)
[2021-08-29] MEDS ORDERED: ACETAMINOPHEN 325 MG TABLET PO PRN (01:10)
[2021-08-29] MEDS ORDERED: hydrALAZINE 20 MG/1 ML VIAL IV PRN (01:10)
[2021-08-29] MEDS: MORPHINE 2 MG/1 ML SYRINGE IV PRN ×3 (02:54→15:34)
[2021-08-29] MEDS: PANTOPRAZOLE 40 MG VIAL IV SCH ×3 (02:56→21:16)
[2021-08-29] MEDS: SODIUM CHLORIDE 0.9% 1,000 ML IV SCH ×2 (02:58→19:33)
[2021-08-29 04:55] LABS: % Iron Saturation 23.4 % (18-50); Albumin 2.2 G/DL (3.4-5.0); Bilirubin,Total 1.1 MG/DL (0.20-1.00); Calcium 8.2 MG/DL (8.5-10.1); Ferritin 1428.9 ng/mL (8-252); Osmolality,Calculated 281.4 MOS/KG (273-304); Potassium 3.7 MMOL/L (3.5-5.1); Total Protein 6.5 G/DL (6.4-8.2)
[2021-08-29 05:14] LABS: Folate 14.86 NG/ML (5.38-24.0); Vitamin B12 > 2000 PG/ML (211-911)
[2021-08-29 06:36] LABS: Basophils % 0.2 % (0.0-0.8); Hematocrit 20.5 VOL% (35.7-47.0); Immature Granulocytes % 11.8 %; Immature Granulocytes Absolute 0.55 #; Lymphocytes # 0.9 10*3/uL (1.4-4.0); Lymphocytes % 19.9 % (21.3-54.2); Mean Corpuscular HGB Conc 31.2 GM/DL (32-36); Mean Corpuscular Volume 117.1 FL (87-102); Mean Platelet Volume 11.3 FL (9.6-12.0); Monocytes % 11.1 % (1.7-12.7); Platelet Count 139 T/CUMM (130-400); Red Blood Count 1.75 MC/CUMM (3.8-5.5); Red Cell Distribution Width 24.4 % (9.3-17.3); White Blood Count 4.7 T/CUMM (4-12)
[2021-08-29 06:39] LABS: Hemoglobin 6.4 GM/DL (12.0-16.0)
[2021-08-29 06:59] LABS: Anisocytosis 2+; Band Neutrophils 17 % (0-10); Lymphocytes 18 % (20-55); Metamyelocytes 1 %; Platelet Estimate Adequate; Segmented Neutrophils 56 % (50-85); Tear Drop Cells Few; Total Cells Counted 100
[2021-08-29 07:00] LABS: Atypical Lymphocytes Few; Macrocytosis 1+; Spherocytes Few
[2021-08-29 07:25] LABS: INR 1.2; Partial Thromboplastin Time 28.2 SECS (23.8-32.1)
[2021-08-29 09:13] LABS: Sedimentation Rate-Westergren 125 MM/HR (0-30)
[2021-08-29] MEDS: PIPERACILLIN/TAZOBACTAM 3,375 MG in SODIUM CHLORIDE 0.9% 100 ML IV SCH ×2 (09:50→19:33)
[2021-08-29 10:15] LABS: Hemoglobin A1 (Alkaline) 98.2 % (96.5-98.5); Hemoglobin A2 (Alkaline) 1.8 % (1.5-3.5)
[2021-08-29] MEDS: ONDANSETRON 4 MG/2 ML VIAL IV PRN ×2 (12:30→21:19)
[2021-08-30] MEDS: ONDANSETRON 4 MG/2 ML VIAL IV PRN ×4 (01:15→21:15)
[2021-08-30] MEDS: MORPHINE 2 MG/1 ML SYRINGE IV PRN ×5 (01:15→21:19)
[2021-08-30] MEDS: PIPERACILLIN/TAZOBACTAM 3,375 MG in SODIUM CHLORIDE 0.9% 100 ML IV SCH ×3 (01:16→16:51)
[2021-08-30] MEDS ORDERED: LACTATED RINGERS 1,000 ML IV SCH (08:00)
[2021-08-30 08:50] LABS: Basophils % 0.6 % (0.0-0.8); Eosinophils # 0.1 10*3/uL (0.0-0.87); Eosinophils % 1.1 % (0.00-10.9); Hematocrit 27.8 VOL% (35.7-47.0); Immature Granulocytes % 11.8 %; Immature Granulocytes Absolute 0.63 #; Mean Corpuscular HGB Conc 31.7 GM/DL (32-36); Mean Corpuscular Volume 102.6 FL (87-102); Mean Platelet Volume 11.6 FL (9.6-12.0); Monocytes % 10.7 % (1.7-12.7); Neutrophils % 57.8 % (38.7-73.9); Platelet Count 146 T/CUMM (130-400); White Blood Count 5.3 T/CUMM (4-12)
[2021-08-30 08:51] LABS: Red Blood Count 2.71 MC/CUMM (3.8-5.5)
[2021-08-30 08:52] LABS: Hemoglobin 8.8 GM/DL (12.0-16.0)
[2021-08-30 09:03] LABS: Calcium 8.2 MG/DL (8.5-10.1); Osmolality,Calculated 280.3 MOS/KG (273-304); Potassium 3.7 MMOL/L (3.5-5.1)
[2021-08-30 09:09] LABS: Band Neutrophils 9 % (0-10); Eosinophils 3 % (0-10); Lymphocytes 17 % (20-55); Segmented Neutrophils 65 % (50-85); Total Cells Counted 100
[2021-08-30 09:10] LABS: Hypochromasia Slight; Macrocytosis 1+; Ovalocytes Few; Platelet Estimate Adequate
[2021-08-30 09:12] LABS: Atypical Lymphocytes Few
[2021-08-30] MEDS: PANTOPRAZOLE 40 MG VIAL IV SCH ×2 (09:46→21:21)
[2021-08-30] MEDS ORDERED: propofoL 200 MG/20 ML VIAL IV ONE (12:07)
[2021-08-30] MEDS ORDERED: LIDOCAINE 2% 5 ML VIAL ONE (12:07)
[2021-08-30] MEDS ORDERED: ETOMIDATE 20 MG/10 ML VIAL IV ONE (12:07)
[2021-08-30] MEDS ORDERED: ONDANSETRON 4 MG/2 ML VIAL IV STA (12:19)
[2021-08-30] MEDS: SODIUM CHLORIDE 0.9% 1,000 ML IV SCH (13:34)
[2021-08-31] MEDS: PIPERACILLIN/TAZOBACTAM 3,375 MG in SODIUM CHLORIDE 0.9% 100 ML IV SCH ×3 (01:06→16:49)
[2021-08-31] MEDS: ONDANSETRON 4 MG/2 ML VIAL IV PRN ×2 (01:39→10:20)
[2021-08-31] MEDS: MORPHINE 2 MG/1 ML SYRINGE IV PRN ×3 (01:41→21:29)
[2021-08-31 07:39] LABS: Basophils % 0.2 % (0.0-0.8); Eosinophils # 0.1 10*3/uL (0.0-0.87); Eosinophils % 1.2 % (0.00-10.9); Hematocrit 28.3 VOL% (35.7-47.0); Hemoglobin 8.8 GM/DL (12.0-16.0); Immature Granulocytes % 0.2 %; Immature Granulocytes Absolute 0.01 #; Lymphocytes % 19.1 % (21.3-54.2); Mean Corpuscular HGB Conc 31.1 GM/DL (32-36); Mean Corpuscular Volume 104.4 FL (87-102); Mean Platelet Volume 11.8 FL (9.6-12.0); Neutrophils % 68.3 % (38.7-73.9); Platelet Count 132 T/CUMM (130-400); Red Blood Count 2.71 MC/CUMM (3.8-5.5); Red Cell Distribution Width 27.8 % (9.3-17.3); White Blood Count 5.2 T/CUMM (4-12)
[2021-08-31 07:54] LABS: Calcium 8.2 MG/DL (8.5-10.1); Osmolality,Calculated 281.1 MOS/KG (273-304); Potassium 3.5 MMOL/L (3.5-5.1)
[2021-08-31 07:59] LABS: Band Neutrophils 1 % (0-10); Eosinophils 1 % (0-10); Lymphocytes 19 % (20-55); Segmented Neutrophils 71 % (50-85); Total Cells Counted 100
[2021-08-31 08:00] LABS: Macrocytosis 1+
[2021-08-31 08:01] LABS: Ovalocytes Slight; Platelet Estimate Adequate
[2021-08-31] MEDS: PANTOPRAZOLE 40 MG TABLET PO SCH ×2 (10:20→20:18)
[2021-08-31] MEDS: METOPROLOL TARTRATE 25 MG TABLET PO SCH ×2 (10:25→20:17)
[2021-08-31] MEDS: DULoxetine 20 MG CAPSULE PO SCH (10:25)
[2021-08-31] MEDS: rOPINIRole 1 MG TABLET PO SCH ×2 (16:50→20:17)
[2021-08-31] MEDS: ATORVASTATIN 40 MG TABLET PO SCH (20:17)
[2021-08-31] MEDS: GABAPENTIN 100 MG CAPSULE PO SCH (20:17)
[2021-09-01] MEDS: PIPERACILLIN/TAZOBACTAM 3,375 MG in SODIUM CHLORIDE 0.9% 100 ML IV SCH ×2 (01:09→09:19)
[2021-09-01 05:46] LABS: Basophils % 0.4 % (0.0-0.8); Eosinophils # 0.1 10*3/uL (0.0-0.87); Eosinophils % 1.4 % (0.00-10.9); Hematocrit 29.7 VOL% (35.7-47.0); Hemoglobin 9.3 GM/DL (12.0-16.0); Immature Granulocytes % 3.7 %; Immature Granulocytes Absolute 0.19 #; Lymphocytes # 1.4 10*3/uL (1.4-4.0); Lymphocytes % 27.4 % (21.3-54.2); Mean Corpuscular HGB Conc 31.3 GM/DL (32-36); Mean Corpuscular Volume 105.3 FL (87-102); Mean Platelet Volume 11.7 FL (9.6-12.0); Monocytes % 10.1 % (1.7-12.7); Platelet Count 129 T/CUMM (130-400); Red Blood Count 2.82 MC/CUMM (3.8-5.5); Red Cell Distribution Width 27.3 % (9.3-17.3); White Blood Count 5.1 T/CUMM (4-12)
[2021-09-01 05:55] LABS: Calcium 8.4 MG/DL (8.5-10.1); Potassium 3.9 MMOL/L (3.5-5.1)
[2021-09-01 06:04] LABS: Osmolality,Calculated 274.7 MOS/KG (273-304)
[2021-09-01 06:25] LABS: Band Neutrophils 2 % (0-10); Eosinophils 1 % (0-10); Hypochromasia 1+; Lymphocytes 28 % (20-55); Macrocytosis 1+; Ovalocytes Few; Segmented Neutrophils 57 % (50-85); Total Cells Counted 100
[2021-09-01 06:26] LABS: Anisocytosis 1+; Platelet Estimate Adequate
[2021-09-01] MEDS: DULoxetine 20 MG CAPSULE PO SCH (09:18)
[2021-09-01] MEDS: PANTOPRAZOLE 40 MG TABLET PO SCH ×2 (09:18→21:59)
[2021-09-01] MEDS: METOPROLOL TARTRATE 25 MG TABLET PO SCH ×2 (09:18→21:57)
[2021-09-01] MEDS: ONDANSETRON 4 MG/2 ML VIAL IV PRN ×2 (10:47→17:24)
[2021-09-01] MEDS: SODIUM CHLORIDE 0.9% 1,000 ML IV SCH ×2 (10:48→10:49)
[2021-09-01] MEDS: MORPHINE 2 MG/1 ML SYRINGE IV PRN ×2 (13:28→22:04)
[2021-09-01] MEDS: rOPINIRole 1 MG TABLET PO SCH ×2 (17:24→21:56)
[2021-09-01] MEDS: ATORVASTATIN 40 MG TABLET PO SCH (21:56)
[2021-09-01] MEDS: GABAPENTIN 100 MG CAPSULE PO SCH (21:59)
[2021-09-01] MEDS: cefTRIAXone 1,000 MG in SODIUM CHLORIDE 0.9% 100 ML IV SCH (22:01)
[2021-09-02 05:56] LABS: Basophils % 0.4 % (0.0-0.8); Calcium 8.3 MG/DL (8.5-10.1); Eosinophils # 0.2 10*3/uL (0.0-0.87); Eosinophils % 4.9 % (0.00-10.9); Hematocrit 28.4 VOL% (35.7-47.0); Immature Granulocytes % 0.6 %; Immature Granulocytes Absolute 0.03 #; Lymphocytes # 1.4 10*3/uL (1.4-4.0); Mean Corpuscular HGB Conc 31.7 GM/DL (32-36); Mean Corpuscular Volume 104.8 FL (87-102); Mean Platelet Volume 12.1 FL (9.6-12.0); Monocytes % 8.3 % (1.7-12.7); Neutrophils % 56.8 % (38.7-73.9); Osmolality,Calculated 275.5 MOS/KG (273-304); Platelet Count 104 T/CUMM (130-400); Potassium 3.5 MMOL/L (3.5-5.1); Red Blood Count 2.71 MC/CUMM (3.8-5.5); Red Cell Distribution Width 26.5 % (9.3-17.3); White Blood Count 4.7 T/CUMM (4-12)
[2021-09-02 06:12] LABS: Eosinophils 1 % (0-10); Lymphocytes 19 % (20-55); Platelet Estimate Adequate; Segmented Neutrophils 73 % (50-85); Total Cells Counted 100
[2021-09-02] MEDS: DULoxetine 20 MG CAPSULE PO SCH (09:55)
[2021-09-02] MEDS: PANTOPRAZOLE 40 MG TABLET PO SCH ×2 (09:56→20:15)
[2021-09-02] MEDS: METOPROLOL TARTRATE 25 MG TABLET PO SCH ×2 (09:56→20:14)
[2021-09-02] MEDS: rOPINIRole 1 MG TABLET PO SCH ×2 (17:06→20:15)
[2021-09-02] MEDS: ATORVASTATIN 40 MG TABLET PO SCH (20:13)
[2021-09-02] MEDS: GABAPENTIN 100 MG CAPSULE PO SCH (20:14)
[2021-09-02] MEDS: cefTRIAXone 1,000 MG in SODIUM CHLORIDE 0.9% 100 ML IV SCH (20:16)
[2021-09-02] MEDS: MORPHINE 2 MG/1 ML SYRINGE IV PRN (20:20)
[2021-09-03 06:00] LABS: Basophils % 0.5 % (0.0-0.8); Eosinophils # 0.1 10*3/uL (0.0-0.87); Eosinophils % 1.3 % (0.00-10.9); Hematocrit 29.1 VOL% (35.7-47.0); Immature Granulocytes % 0.3 %; Immature Granulocytes Absolute 0.01 #; Lymphocytes # 1.3 10*3/uL (1.4-4.0); Lymphocytes % 32.8 % (21.3-54.2); Mean Corpuscular HGB Conc 30.9 GM/DL (32-36); Mean Corpuscular Volume 105.4 FL (87-102); Mean Platelet Volume 11.9 FL (9.6-12.0); Neutrophils % 56.1 % (38.7-73.9); Platelet Count 122 T/CUMM (130-400); Red Blood Count 2.76 MC/CUMM (3.8-5.5); Red Cell Distribution Width 26.3 % (9.3-17.3)
[2021-09-03 06:13] LABS: Calcium 8.6 MG/DL (8.5-10.1); Osmolality,Calculated 275.5 MOS/KG (273-304); Potassium 3.8 MMOL/L (3.5-5.1)
[2021-09-03] MEDS: PANTOPRAZOLE 40 MG TABLET PO SCH (08:51)
[2021-09-03] MEDS: DULoxetine 20 MG CAPSULE PO SCH (08:51)
[2021-09-03] MEDS: METOPROLOL TARTRATE 25 MG TABLET PO SCH (08:51)
[2021-09-03 11:53] VITALS: BP 141/69
== END 2021-09-03 14:31 | disposition home health service (06) | DRG 392 ==
LOC: N.ED 19:02 → N.EDINP 08-29 01:08 → SUATTDRO 08-29 01:08 → N.5E 08-29 13:16
PROVIDERS: ADMIT Internal Medicine; ATTEND Internal Medicine

== ENCOUNTER 2022-05-30 05:53 | Inpatient (IN) ==
[2022-05-23 11:57] LABS: Hyaline Casts,Urine 48 /LPF (0-3); Mucus,Urine Occasional /LPF (Occasional); RBC,Urine 18 /HPF (0-4); Squamous Epithelial Cell,Urine Occasional /HPF (0-10)
[2022-05-23 11:58] LABS: Bilirubin,Urine Negative (Negative); Blood, Urine Negative (Negative); Glucose,Urine (UA) Negative (Negative); Ketones,Urine Trace mg/dL (Negative); Nitrite,Urine Negative (Negative); Protein,Urine Negative (Negative); Urine Appearance Slightly Hazy (Clear); Urine Color Yellow (Yellow); Urine Specific Gravity 1.025 (1.001-1.035); Urine Urobilinogen 0.2 eU/dL (<2.0)
[2022-05-30] MEDS ORDERED: VANCOMYCIN INJ 1,000 MG in SODIUM CHLORIDE 0.9% 250 ML IV ONE (06:00)
[2022-05-30 07:10] LABS: INR 1.1; PT Patient Result 12.3 SECS (10.5-12.0); Partial Thromboplastin Time 31.4 SECS (23.7-32.9)
[2022-05-30] MEDS ORDERED: LACTATED RINGERS 1,000 ML IV SCH (08:00)
[2022-05-30] MEDS ORDERED: SODIUM CHLORIDE 0.9% 250 ML IV ONE (08:28)
[2022-05-30] MEDS ORDERED: DEXMEDETOMIDINE 200 MCG/2 ML VIAL ONE (08:28)
[2022-05-30] MEDS ORDERED: KETAMINE 500 MG/10 ML VIAL ONE (08:28)
[2022-05-30] MEDS ORDERED: propofoL 200 MG/20 ML VIAL IV ONE ×2 (08:28→11:17)
[2022-05-30] MEDS ORDERED: BACITRACIN OINT 0.9 GM PACK TOP ONE (09:09)
[2022-05-30] MEDS ORDERED: oxyCODONE/ACETAMINOPHEN 5-325 MG TABLET ONE (09:14)
[2022-05-30] MEDS ORDERED: GABAPENTIN 400 MG CAPSULE ONE (09:15)
[2022-05-30] MEDS ORDERED: PANTOPRAZOLE 20 MG TABLET PO ONE (09:15)
[2022-05-30] MEDS ORDERED: ACETAMINOPHEN 325 MG TABLET ONE (09:15)
[2022-05-30] MEDS ORDERED: BUPIVACAINE SPINAL 0.75% 2 ML AMP SPINAL ONE (09:23)
[2022-05-30] MEDS ORDERED: buprenorphine HCL 0.3 MG/ML VIAL ONE (09:24)
[2022-05-30] MEDS ORDERED: ALBUMIN 5% 12.5 GM/250 ML VIAL IV ONE (09:48)
[2022-05-30] MEDS ORDERED: CALCIUM CHLORIDE 1,000 MG/10 ML VIAL IV ONE (09:48)
[2022-05-30] MEDS ORDERED: ZALEPLON 5 MG CAPSULE PO PRN (10:41)
[2022-05-30] MEDS ORDERED: MAGNESIUM HYDROXIDE SUSP 30 ML UDCUP PO PRN (10:41)
[2022-05-30] MEDS ORDERED: oxyCODONE IR 5 MG TABLET PO PRN (10:41)
[2022-05-30] MEDS ORDERED: MORPHINE 2 MG/1 ML SYRINGE IV PRN ×2 (10:41)
[2022-05-30] MEDS ORDERED: diphenhydrAMINE CAP 25 MG CAPSULE PO PRN (10:41)
[2022-05-30] MEDS ORDERED: fentaNYL 100 MCG/2 ML VIAL ONE (10:57)
[2022-05-30] MEDS ORDERED: ROCURONIUM 50 MG/5 ML VIAL IV ONE (11:17)
[2022-05-30] MEDS ORDERED: ONDANSETRON 4 MG/2 ML VIAL ONE (11:17)
[2022-05-30] MEDS ORDERED: SEVOFLURANE 1 UNIT/15 MINUTE INH ONE (11:17)
[2022-05-30] MEDS ORDERED: SUCCINYLCHOLINE 200 MG/10 ML VIAL ONE (11:17)
[2022-05-30] MEDS ORDERED: PHENYLEPHRINE 1 MG/10 ML SYRINGE IV ONE (11:49)
[2022-05-30] MEDS ORDERED: SODIUM CHLORIDE 0.9% 100 ML IV ONE (11:49)
[2022-05-30] MEDS ORDERED: TRANEXAMIC ACID 1,000 MG/10 ML VIAL ONE (11:49)
[2022-05-30] MEDS ORDERED: SODIUM CHLORIDE 0.9% 1,000 ML IV ONE (11:49)
[2022-05-30] MEDS ORDERED: LIDOCAINE 1% 5 ML VIAL ONE (12:14)
[2022-05-30] MEDS ORDERED: BUPIVACAINE MPF 0.25% 30 ML VIAL ONE (12:15)
[2022-05-30] MEDS ORDERED: ONDANSETRON 4 MG/2 ML VIAL IV PRN (12:53)
[2022-05-30] MEDS ORDERED: HYDROmorphone 1 MG/1 ML SYRINGE ONE (12:54)
[2022-05-30] MEDS: HYDROmorphone 1 MG/1 ML SYRINGE IV PRN ×2 (12:55→13:12)
[2022-05-30 13:00] LABS: Bilirubin,Urine Negative (Negative); Blood, Urine Negative (Negative); Glucose,Urine (UA) Negative (Negative); Ketones,Urine Negative (Negative); Nitrite,Urine Negative (Negative); Protein,Urine Negative (Negative); Urine Appearance Clear (Clear); Urine Color Yellow (Yellow); Urine Specific Gravity 1.025 (1.001-1.035); Urine Urobilinogen 0.2 eU/dL (<2.0); Urine pH 5.5 (4.5-8.0)
[2022-05-30 13:12] LABS: Hyaline Casts,Urine 1 /LPF (0-3); Mucus,Urine Occasional /LPF (Occasional); RBC,Urine 10 /HPF (0-4); Squamous Epithelial Cell,Urine Occasional /HPF (0-10)
[2022-05-30] MEDS: LACTATED RINGERS 1,000 ML IV SCH ×2 (15:16→22:17)
[2022-05-30] MEDS: KETOROLAC 15 MG/1 ML VIAL IV SCH ×3 (15:16→22:44)
[2022-05-30] MEDS ORDERED: TUBERCULIN SKIN TEST 0.1 ML SYRINGE INTRADERM ONE (15:47)
[2022-05-30] MEDS: METOPROLOL TARTRATE 25 MG TABLET PO SCH (20:59)
[2022-05-30] MEDS: DOCUSATE SODIUM 100 MG CAPSULE PO SCH (20:59)
[2022-05-30] MEDS: rOPINIRole 1 MG TABLET PO SCH (20:59)
[2022-05-30] MEDS: oxyCODONE/ACETAMINOPHEN 5-325 MG TABLET PO PRN (21:11)
[2022-05-31] MEDS: LACTATED RINGERS 1,000 ML IV SCH ×3 (02:51→17:48)
[2022-05-31] MEDS: FONDAPARINUX 2.5 MG/0.5 ML SYRINGE SUBCUT SCH (04:35)
[2022-05-31 05:03] LABS: Calcium 9.4 MG/DL (8.5-10.1); Potassium 4.1 MMOL/L (3.5-5.1)
[2022-05-31 05:55] LABS: Basophils % 0.3 % (0.0-0.8); Hemoglobin 7.1 GM/DL (12.0-16.0); Immature Granulocytes % 5.6 %; Immature Granulocytes Absolute 0.44 #; Lymphocytes % 12.8 % (21.3-54.2); Mean Corpuscular HGB Conc 30.9 GM/DL (32-36); Mean Corpuscular Volume 113.9 FL (87-102); Mean Platelet Volume 12.6 FL (9.6-12.0); Neutrophils % 68.3 % (38.7-73.9); Platelet Count 177 T/CUMM (130-400); Red Blood Count 2.02 MC/CUMM (3.8-5.5); Red Cell Distribution Width 24.5 % (9.3-17.3); White Blood Count 7.8 T/CUMM (4-12)
[2022-05-31 06:16] LABS: Lymphocytes 16 % (20-55); Platelet Estimate Adequate; Total Cells Counted 100
[2022-05-31] MEDS ORDERED: SODIUM CHLORIDE 0.9% 1,000 ML IV PRN (06:44)
[2022-05-31] MEDS ORDERED: FUROSEMIDE 20 MG/2 ML VIAL IV ONE (07:31)
[2022-05-31] MEDS: FUROSEMIDE 20 MG TABLET PO SCH (08:44)
[2022-05-31] MEDS: METOPROLOL TARTRATE 25 MG TABLET PO SCH ×2 (08:44→20:56)
[2022-05-31] MEDS: predniSONE 10 MG TABLET PO SCH (08:44)
[2022-05-31] MEDS: DOCUSATE SODIUM 100 MG CAPSULE PO SCH ×2 (08:44→20:57)
[2022-05-31] MEDS: oxyCODONE/ACETAMINOPHEN 5-325 MG TABLET PO PRN ×2 (10:07→16:28)
[2022-05-31] MEDS: rOPINIRole 1 MG TABLET PO SCH ×2 (14:46→20:56)
[2022-05-31] MEDS: ONDANSETRON 4 MG/2 ML VIAL IV PRN (17:48)
[2022-05-31 17:55] LABS: Hematocrit 30.5 VOL% (35.7-47.0); Hemoglobin 9.8 GM/DL (12.0-16.0)
[2022-05-31] MEDS: ATORVASTATIN 40 MG TABLET PO SCH (20:57)
[2022-06-01] MEDS: ONDANSETRON 4 MG/2 ML VIAL IV PRN (03:42)
[2022-06-01] MEDS: LACTATED RINGERS 1,000 ML IV SCH (03:48)
[2022-06-01] MEDS: FONDAPARINUX 2.5 MG/0.5 ML SYRINGE SUBCUT SCH (04:49)
[2022-06-01] MEDS: DOCUSATE SODIUM 100 MG CAPSULE PO SCH ×2 (08:20→20:22)
[2022-06-01] MEDS: FUROSEMIDE 20 MG TABLET PO SCH (08:21)
[2022-06-01] MEDS: predniSONE 10 MG TABLET PO SCH (08:21)
[2022-06-01] MEDS: METOPROLOL TARTRATE 25 MG TABLET PO SCH ×2 (08:21→20:22)
[2022-06-01] MEDS: oxyCODONE/ACETAMINOPHEN 5-325 MG TABLET PO PRN ×4 (08:21→19:46)
[2022-06-01 08:23] LABS: Basophils % 0.2 % (0.0-0.8); Eosinophils % 0.1 % (0.00-10.9); Hematocrit 30.6 VOL% (35.7-47.0); Hemoglobin 9.8 GM/DL (12.0-16.0); Immature Granulocytes % 6.5 %; Immature Granulocytes Absolute 0.66 #; Lymphocytes # 0.6 10*3/uL (1.4-4.0); Lymphocytes % 6.3 % (21.3-54.2); Mean Platelet Volume 12.7 FL (9.6-12.0); Monocytes % 9.8 % (1.7-12.7); Neutrophils % 77.1 % (38.7-73.9); Platelet Count 164 T/CUMM (130-400); Red Blood Count 3.06 MC/CUMM (3.8-5.5); Red Cell Distribution Width 27.1 % (9.3-17.3); White Blood Count 10.2 T/CUMM (4-12)
[2022-06-01] MEDS ORDERED: ONDANSETRON ODT 4 MG TABLET PO PRN (08:53)
[2022-06-01 09:05] LABS: Band Neutrophils 4 % (0-10); Lymphocytes 5 % (20-55); Platelet Estimate Adequate; Total Cells Counted 100
[2022-06-01] MEDS: rOPINIRole 1 MG TABLET PO SCH ×2 (14:20→20:22)
[2022-06-01] MEDS: OMEPRAZOLE ODT 20 MG TABLET PO SCH (16:10)
[2022-06-01] MEDS: ATORVASTATIN 40 MG TABLET PO SCH (20:22)
[2022-06-02] MEDS: FONDAPARINUX 2.5 MG/0.5 ML SYRINGE SUBCUT SCH (04:26)
[2022-06-02] MEDS: oxyCODONE/ACETAMINOPHEN 5-325 MG TABLET PO PRN ×2 (04:43→08:28)
[2022-06-02 06:20] LABS: Basophils % 0.4 % (0.0-0.8); Eosinophils # 0.1 10*3/uL (0.0-0.87); Hematocrit 30.5 VOL% (35.7-47.0); Hemoglobin 9.5 GM/DL (12.0-16.0); Immature Granulocytes % 6.8 %; Immature Granulocytes Absolute 0.52 #; Lymphocytes # 0.9 10*3/uL (1.4-4.0); Mean Corpuscular HGB Conc 31.1 GM/DL (32-36); Mean Corpuscular Volume 102.3 FL (87-102); Mean Platelet Volume 13.7 FL (9.6-12.0); Monocytes # 0.7 10*3/uL (0.11-0.8); Monocytes % 9.4 % (1.7-12.7); Neutrophils % 70.4 % (38.7-73.9); Platelet Count 134 T/CUMM (130-400); Red Blood Count 2.98 MC/CUMM (3.8-5.5); Red Cell Distribution Width 26.1 % (9.3-17.3); White Blood Count 7.7 T/CUMM (4-12)
[2022-06-02 06:49] LABS: Eosinophils 1 % (0-10); Lymphocytes 12 % (20-55); Total Cells Counted 100
[2022-06-02 06:50] LABS: Platelet Estimate Normal
[2022-06-02] MEDS: FUROSEMIDE 20 MG TABLET PO SCH (08:27)
[2022-06-02] MEDS: DOCUSATE SODIUM 100 MG CAPSULE PO SCH (08:27)
[2022-06-02] MEDS: predniSONE 10 MG TABLET PO SCH (08:27)
[2022-06-02] MEDS: METOPROLOL TARTRATE 25 MG TABLET PO SCH (08:27)
[2022-06-02] MEDS: OMEPRAZOLE ODT 20 MG TABLET PO SCH (08:27)
[2022-06-02 11:23] VITALS: BP 113/57
== END 2022-06-02 11:52 | disposition swing bed (61) | DRG 470 ==
LOC: N.SDSINP 05:53 → N.3E 14:49
PROVIDERS: ADMIT Orthopaedic Surgery; ATTEND Orthopaedic Surgery

== ENCOUNTER 2022-06-04 18:25 | Observation (INO) ==
[~2022-06-04 18:25] MED LIST: ENOXAPARIN 40 MG/0.4 ML SYRINGE SUBCUT SCH
[2022-06-04 18:57] LABS: Basophils % 0.3 % (0.0-0.8); Eosinophils % 0.3 % (0.00-10.9); Hematocrit 32.6 VOL% (35.7-47.0); Hemoglobin 10.3 GM/DL (12.0-16.0); Immature Granulocytes % 6.7 %; Immature Granulocytes Absolute 0.41 #; Lymphocytes % 16.3 % (21.3-54.2); Mean Corpuscular HGB Conc 31.6 GM/DL (32-36); Mean Corpuscular Volume 101.6 FL (87-102); Mean Platelet Volume 13.1 FL (9.6-12.0); Monocytes # 0.7 10*3/uL (0.11-0.8); Monocytes % 11.5 % (1.7-12.7); Neutrophils % 64.9 % (38.7-73.9); Platelet Count 184 T/CUMM (130-400); Red Blood Count 3.21 MC/CUMM (3.8-5.5); Red Cell Distribution Width 25.2 % (9.3-17.3); White Blood Count 6.1 T/CUMM (4-12)
[2022-06-04 19:16] LABS: Albumin 2.3 G/DL (3.4-5.0); Bilirubin,Total 0.9 MG/DL (0.20-1.00); Calcium 9.6 MG/DL (8.5-10.1); Osmolality,Calculated 290.8 MOS/KG (273-304); Total Protein 6.4 G/DL (6.4-8.2)
[2022-06-04] MEDS ORDERED: fentaNYL 100 MCG/2 ML VIAL IV STA (19:16)
[2022-06-04 19:25] LABS: Band Neutrophils 4 % (0-10); Hypochromia Slight; Lymphocytes 9 % (20-55); Ovalocytes Few
[2022-06-04 19:27] LABS: Burr Cells Slight
[2022-06-04 19:28] LABS: Total Cells Counted 100
[2022-06-04] MEDS ORDERED: DIAZEPAM 10 MG/2 ML SYRINGE IV STA (19:34)
[2022-06-04] MEDS ORDERED: SODIUM CHLORIDE 0.9% 1,000 ML IV STA (20:07)
[2022-06-04] MEDS ORDERED: CIPROFLOXACIN INJ 400 MG/200 ML PREMIX IV STA (20:10)
[2022-06-04] MEDS ORDERED: metroNIDAZOLE INJ 500 MG/100 ML PREMIX IV STA (20:10)
[2022-06-04] MEDS ORDERED: MORPHINE 2 MG/1 ML SYRINGE IV STA (21:14)
[2022-06-04] MEDS ORDERED: ONDANSETRON 4 MG/2 ML VIAL IV STA (21:15)
[2022-06-04] MEDS: rOPINIRole 1 MG TABLET PO SCH (21:25)
[2022-06-04] MEDS ORDERED: hydrALAZINE 20 MG/1 ML VIAL IV PRN (21:32)
[2022-06-04] MEDS ORDERED: MAGNESIUM SULF RIDER 4 GM/100 ML PREMIX IV PRN (21:32)
[2022-06-04] MEDS ORDERED: ACETAMINOPHEN 325 MG TABLET PO PRN (21:32)
[2022-06-04] MEDS ORDERED: MORPHINE 2 MG/1 ML SYRINGE IV PRN (21:32)
[2022-06-04] MEDS ORDERED: POTASSIUM CHLORIDE RIDER 10 MEQ/100 ML PREMIX IV PRN (21:32)
[2022-06-04] MEDS ORDERED: SIMETHICONE CHEW 125 MG TABLET PO PRN (21:32)
[2022-06-04] MEDS ORDERED: MAGNESIUM SULF RIDER 2 GM/50 ML PREMIX IV PRN (21:32)
[2022-06-04] MEDS ORDERED: GLUCAGON 1 MG VIAL IM PRN (21:32)
[2022-06-04] MEDS ORDERED: DEXTROSE 10% 250 ML BAG IV PRN (21:58)
[2022-06-04] MEDS: SODIUM CHLORIDE 0.45% 1,000 ML IV SCH (23:40)
[2022-06-05] MEDS ORDERED: tiZANidine 4 MG TABLET PO STA (00:07)
[2022-06-05] MEDS ORDERED: oxyCODONE/ACETAMINOPHEN 5-325 MG TABLET PO PRN (02:12)
[2022-06-05 06:38] LABS: Calcium 8.8 MG/DL (8.5-10.1); Osmolality,Calculated 285.1 MOS/KG (273-304); Potassium 3.6 MMOL/L (3.5-5.1)
[2022-06-05 07:34] LABS: Basophils % 0.5 % (0.0-0.8); Eosinophils % 0.3 % (0.00-10.9); Lymphocytes % 17.5 % (21.3-54.2); Mean Corpuscular HGB Conc 32.1 GM/DL (32-36); Platelet Count 155 T/CUMM (130-400)
[2022-06-05 07:39] LABS: Immature Granulocytes % 5.7 %; Immature Granulocytes Absolute 0.34 #; Mean Corpuscular Volume 100.8 FL (87-102); Mean Platelet Volume 12.7 FL (9.6-12.0); Monocytes # 0.8 10*3/uL (0.11-0.8); Monocytes % 13.8 % (1.7-12.7); Neutrophils % 62.2 % (38.7-73.9); Red Blood Count 2.38 MC/CUMM (3.8-5.5); Red Cell Distribution Width 25.3 % (9.3-17.3)
[2022-06-05 07:40] LABS: Hemoglobin 7.7 GM/DL (12.0-16.0)
[2022-06-05 07:53] LABS: Eosinophils 1 % (0-10); Lymphocytes 21 % (20-55); Platelet Estimate Adequate; Total Cells Counted 100
[2022-06-05] MEDS: metroNIDAZOLE INJ 500 MG/100 ML PREMIX IV SCH ×2 (08:12→16:53)
[2022-06-05] MEDS: POLYETHYLENE GLYCOL POWDER 17 GM PACK PO SCH ×2 (08:12→23:08)
[2022-06-05] MEDS: ATORVASTATIN 40 MG TABLET PO SCH (08:12)
[2022-06-05] MEDS: predniSONE 10 MG TABLET PO SCH (08:13)
[2022-06-05] MEDS: rOPINIRole 1 MG TABLET PO SCH ×2 (08:13→20:36)
[2022-06-05] MEDS: DOCUSATE SODIUM 100 MG CAPSULE PO SCH ×2 (08:13→20:36)
[2022-06-05] MEDS: FUROSEMIDE 20 MG TABLET PO SCH (08:13)
[2022-06-05] MEDS: FONDAPARINUX 2.5 MG/0.5 ML SYRINGE SUBCUT SCH (08:13)
[2022-06-05] MEDS: PANTOPRAZOLE 40 MG VIAL IV SCH (08:13)
[2022-06-05] MEDS: METOPROLOL TARTRATE 25 MG TABLET PO SCH ×2 (08:13→20:36)
[2022-06-05] MEDS: CIPROFLOXACIN INJ 400 MG/200 ML PREMIX IV SCH ×2 (10:37→20:43)
[2022-06-05] MEDS ORDERED: MAGNESIUM SULF RIDER 2 GM/50 ML PREMIX IV ONE (11:00)
[2022-06-05 15:25] LABS: % Iron Saturation 75.3 % (18-50)
[2022-06-05 15:40] LABS: Folate 12.72 NG/ML (5.38-24.0)
[2022-06-05] MEDS: ONDANSETRON 4 MG/2 ML VIAL IV PRN ×2 (16:59→20:36)
[2022-06-05] MEDS ORDERED: rOPINIRole 1 MG TABLET PO SCH (21:00)
[2022-06-06] MEDS: metroNIDAZOLE INJ 500 MG/100 ML PREMIX IV SCH ×3 (00:17→15:45)
[2022-06-06] MEDS: ONDANSETRON 4 MG/2 ML VIAL IV PRN ×2 (00:17→04:27)
[2022-06-06] MEDS: SODIUM CHLORIDE 0.45% 1,000 ML IV SCH ×2 (04:24→04:25)
[2022-06-06 06:24] LABS: Basophils % 0.4 % (0.0-0.8); Eosinophils % 0.4 % (0.00-10.9); Hematocrit 24.8 VOL% (35.7-47.0); Hemoglobin 7.9 GM/DL (12.0-16.0); Immature Granulocytes % 6.6 %; Immature Granulocytes Absolute 0.56 #; Lymphocytes # 1.1 10*3/uL (1.4-4.0); Lymphocytes % 12.3 % (21.3-54.2); Mean Corpuscular HGB Conc 31.9 GM/DL (32-36); Mean Corpuscular Volume 100.4 FL (87-102); Mean Platelet Volume 12.7 FL (9.6-12.0); Monocytes # 1.3 10*3/uL (0.11-0.8); Monocytes % 15.2 % (1.7-12.7); Neutrophils % 65.1 % (38.7-73.9); Platelet Count 181 T/CUMM (130-400); Red Blood Count 2.47 MC/CUMM (3.8-5.5); Red Cell Distribution Width 24.8 % (9.3-17.3); White Blood Count 8.5 T/CUMM (4-12)
[2022-06-06 06:39] LABS: Calcium 8.9 MG/DL (8.5-10.1); Potassium 3.4 MMOL/L (3.5-5.1)
[2022-06-06 06:47] LABS: Eosinophils 1 % (0-10); Lymphocytes 9 % (20-55); Platelet Estimate Adequate; Total Cells Counted 100
[2022-06-06] MEDS: FUROSEMIDE 20 MG TABLET PO SCH (08:29)
[2022-06-06] MEDS: DOCUSATE SODIUM 100 MG CAPSULE PO SCH (08:29)
[2022-06-06] MEDS: predniSONE 10 MG TABLET PO SCH (08:29)
[2022-06-06] MEDS: rOPINIRole 1 MG TABLET PO SCH (08:29)
[2022-06-06] MEDS: METOPROLOL TARTRATE 25 MG TABLET PO SCH (08:29)
[2022-06-06] MEDS: CIPROFLOXACIN INJ 400 MG/200 ML PREMIX IV SCH (08:30)
[2022-06-06] MEDS: ATORVASTATIN 40 MG TABLET PO SCH (08:30)
[2022-06-06] MEDS: PANTOPRAZOLE 40 MG VIAL IV SCH (08:31)
[2022-06-06] MEDS: FONDAPARINUX 2.5 MG/0.5 ML SYRINGE SUBCUT SCH (08:31)
[2022-06-06] MEDS: POLYETHYLENE GLYCOL POWDER 17 GM PACK PO SCH (08:31)
[2022-06-06] MEDS ORDERED: metroNIDAZOLE 500 MG TABLET PO SCH (17:00)
[2022-06-06 17:22] VITALS: BP 118/62
== END 2022-06-06 17:45 ==
LOC: EDUNIT# → EDBD → N.ED 18:25 → N.3E 18:25
PROVIDERS: ADMIT Internal Medicine; ATTEND Internal Medicine

== ENCOUNTER 2022-06-16 08:48 | Inpatient (IN) ==
[2022-06-16] MEDS ORDERED: ALBUTEROL 2.5 MG/3 ML NEB RESP TX PRN (09:16)
[2022-06-16 09:20] LABS: Basophils % 0.2 % (0.0-0.8); Eosinophils # 0.1 10*3/uL (0.0-0.87); Eosinophils % 0.8 % (0.00-10.9); Immature Granulocytes % 7.3 %; Immature Granulocytes Absolute 1.24 #; Lymphocytes # 5.8 10*3/uL (1.4-4.0); Lymphocytes % 34.2 % (21.3-54.2); Mean Platelet Volume 12.3 FL (9.6-12.0); Monocytes # 1.3 10*3/uL (0.11-0.8); Monocytes % 7.5 % (1.7-12.7); NRBC # 0.14 10*3/uL; Platelet Count 204 T/CUMM (130-400); Red Blood Count 1.77 MC/CUMM (3.8-5.5); Red Cell Distribution Width 26.7 % (9.3-17.3); White Blood Count 16.9 T/CUMM (4-12)
[2022-06-16 09:22] LABS: Hemoglobin 5.8 GM/DL (12.0-16.0)
[2022-06-16] MEDS ORDERED: SODIUM CHLORIDE 0.9% 1,000 ML IV PRN (09:23)
[2022-06-16 09:32] LABS: Arterial Base Excess iSTAT -4 MMOL/L (-2.5-2.5); Arterial Bicarbonate iSTAT 22.3 MMOL/L (20-26); Arterial O2 Saturation iSTAT 100 % (95-100); Arterial PCO2 iSTAT 46 MM HG (35-48); Arterial PO2 iSTAT 449 MM HG (80-95); Arterial Total CO2 iSTAT 24 MMO/L (23-27); Arterial pH iSTAT 7.294 (7.35-7.45)
[2022-06-16 09:45] LABS: Band Neutrophils 1 % (0-10); Burr Cells Slight; Hypochromia Slight; Lymphocytes 33 % (20-55); Macrocytosis Slight; Platelet Estimate Adequate; Total Cells Counted 100
[2022-06-16 10:04] LABS: Calcium 8.1 MG/DL (8.5-10.1); Osmolality,Calculated 292.1 MOS/KG (273-304); Potassium 3.8 MMOL/L (3.5-5.1); Thyroid Stimulating Hormone 5.97 uIU/ml (0.358-3.74); Total Protein 4.9 G/DL (6.4-8.2)
[2022-06-16] MEDS ORDERED: LABETALOL 20 MG/4 ML SYRINGE IV ONE (11:03)
[2022-06-16 11:09] LABS: Bilirubin,Urine Negative (Negative); Blood, Urine Moderate mg/dL (Negative); Glucose,Urine (UA) Negative (Negative); Ketones,Urine Negative (Negative); Mucus,Urine Occasional /LPF (Occasional); Nitrite,Urine Negative (Negative); Protein,Urine 30 mg/dL (Negative); RBC,Urine 1 /HPF (0-4); Urine Appearance Clear (Clear); Urine Color Yellow (Yellow); Urine Urobilinogen 0.2 eU/dL (<2.0)
[2022-06-16] MEDS ORDERED: GLUCAGON 1 MG VIAL IM PRN (11:13)
[2022-06-16] MEDS ORDERED: DEXTROSE 10% 250 ML BAG IV PRN (11:13)
[2022-06-16] MEDS ORDERED: LACTATED RINGERS 1,000 ML IV ONE (11:20)
[2022-06-16] MEDS ORDERED: MIDAZOLAM 2 MG/2 ML VIAL ONE (11:22)
[2022-06-16] MEDS ORDERED: MIDAZOLAM 2 MG/2 ML VIAL IV ONE (11:24)
[2022-06-16] MEDS: LACTATED RINGERS 1,000 ML IV SCH ×2 (11:27→23:40)
[2022-06-16] MEDS: PIPERACILLIN/TAZOBACTAM 3,375 MG in SODIUM CHLORIDE 0.9% 100 ML IV STA ×2 (11:28→13:45)
[2022-06-16] MEDS ORDERED: EPINEPHrine 1 MG/10 ML SYRINGE ONE (11:32)
[2022-06-16] MEDS ORDERED: EPINEPHrine 1 MG/10 ML SYRINGE IV ONE (11:33)
[2022-06-16] MEDS ORDERED: MAGNESIUM SULF RIDER 2 GM/50 ML PREMIX IV ONE (11:50)
[2022-06-16 12:26] LABS: ABG Base Excess 0.9 MMOL/L (-2.5-2.5); ABG HCO3 25.2 MMOL/L (20-26); ABG Oxygen Saturation 99.9 % (95-100); ABG PCO2 35.1 MM HG (35-48); ABG PH 7.452 (7.35-7.45); ABG TCO2 22.3 MMOL/L (23-27)
[2022-06-16] MEDS: fentaNYL INJ 1,250 MCG in SODIUM CHLORIDE 0.9% 225 ML IV PRN ×2 (13:00→23:02)
[2022-06-16 13:04] LABS: Alanine Aminotransferase 38 U/L (13-56); Albumin 2.2 G/DL (3.4-5.0); Alkaline Phosphatase 103 U/L (45-117); Aspartate Amino Transferase 61 U/L (0-37); Blood Urea Nitrogen 18 MG/DL (7-18); CKMB % 8.41 %; Calcium 8.2 MG/DL (8.5-10.1); Carbon Dioxide 24 MMOL/L (21-32); Chloride 108 MMOL/L (98-107); Glucose 165 MG/DL (74-106); Osmolality,Calculated 286.3 MOS/KG (273-304); Phosphorous 3.6 MG/DL (2.5-4.9); Potassium 3.9 MMOL/L (3.5-5.1); Sodium 141 MMOL/L (136-145); Total Protein 5.7 G/DL (6.4-8.2)
[2022-06-16 13:08] LABS: INR 1.2; PT Patient Result 12.9 SECS (10.1-12.1); Partial Thromboplastin Time 29.4 SECS (23.7-32.9)
[2022-06-16] MEDS: PIPERACILLIN/TAZOBACTAM 3,375 MG in SODIUM CHLORIDE 0.9% 100 ML IV SCH ×2 (13:35→20:15)
[2022-06-16] MEDS: INSULIN REGULAR 100 UNIT/ML IV SCH ×6 (13:38→23:32)
[2022-06-16] MEDS: AMIODARONE INJ 450 MG in DEXTROSE 5% 241 ML IV SCH (14:30)
[2022-06-16] MEDS: MEPERIDINE 25 MG/1 ML VIAL IV PRN (15:21)
[2022-06-16] MEDS: MINERAL OIL/PETROLATUM OPH OINT 3.5 GM TUBE BOTH EYES SCH ×2 (15:51→20:59)
[2022-06-16 16:10] LABS: Basophils # 0.1 10*3/uL (0.0-0.2); Basophils % 0.3 % (0.0-0.8); Hematocrit 29.5 VOL% (35.7-47.0); Hemoglobin 9.3 GM/DL (12.0-16.0); Immature Granulocytes % 8.7 %; Immature Granulocytes Absolute 1.77 #; Lymphocytes # 1.1 10*3/uL (1.4-4.0); Lymphocytes % 5.6 % (21.3-54.2); Mean Corpuscular HGB Conc 31.5 GM/DL (32-36); Mean Corpuscular Volume 96.4 FL (87-102); Mean Platelet Volume 12.2 FL (9.6-12.0); Monocytes # 1.7 10*3/uL (0.11-0.8); Monocytes % 8.3 % (1.7-12.7); NRBC # 0.03 10*3/uL; Neutrophils % 77.1 % (38.7-73.9); Platelet Count 237 T/CUMM (130-400); Red Blood Count 3.06 MC/CUMM (3.8-5.5); White Blood Count 20.3 T/CUMM (4-12)
[2022-06-16] MEDS: MIDAZOLAM 100 MG in SODIUM CHLORIDE 0.9% 80 ML IV PRN (16:20)
[2022-06-16 16:46] LABS: Band Neutrophils 6 % (0-10); Lymphocytes 8 % (20-55); Total Cells Counted 100
[2022-06-16 16:47] LABS: Anisocytosis 1+; Macrocytosis 1+; Microcytosis 1+; Platelet Estimate Adequate
[2022-06-16 18:19] LABS: Basophils % 0.2 % (0.0-0.8); Calcium 8.3 MG/DL (8.5-10.1); Eosinophils % 0.1 % (0.00-10.9); Hematocrit 28.7 VOL% (35.7-47.0); Hemoglobin 9.2 GM/DL (12.0-16.0); Immature Granulocytes % 8.1 %; Immature Granulocytes Absolute 1.41 #; Lymphocytes # 1.1 10*3/uL (1.4-4.0); Lymphocytes % 6.2 % (21.3-54.2); Mean Corpuscular HGB Conc 32.1 GM/DL (32-36); Mean Corpuscular Volume 95.3 FL (87-102); Mean Platelet Volume 12.1 FL (9.6-12.0); Monocytes # 1.3 10*3/uL (0.11-0.8); Monocytes % 7.7 % (1.7-12.7); NRBC # 0.02 10*3/uL; Neutrophils % 77.7 % (38.7-73.9); Osmolality,Calculated 283.4 MOS/KG (273-304); Platelet Count 210 T/CUMM (130-400); Potassium 4.2 MMOL/L (3.5-5.1); Red Blood Count 3.01 MC/CUMM (3.8-5.5); Red Cell Distribution Width 22.7 % (9.3-17.3); White Blood Count 17.5 T/CUMM (4-12)
[2022-06-16 18:22] LABS: CKMB % 13.67 %
[2022-06-16 18:41] LABS: INR 1.2; PT Patient Result 12.6 SECS (10.1-12.1); Partial Thromboplastin Time 32.8 SECS (23.7-32.9)
[2022-06-16 18:53] LABS: Band Neutrophils 6 % (0-10); Lymphocytes 7 % (20-55); Platelet Estimate Adequate; Total Cells Counted 100
[2022-06-16 18:54] LABS: Anisocytosis 1+; Macrocytosis 1+; Microcytosis 1+
[2022-06-16 21:59] LABS: CKMB % 16.23 %; High Sensitive Troponin I* 1172.6 ng/L (0-54)
[2022-06-16 23:55] LABS: Calcium Oxalate Crystals,Urine Occasional /HPF (Few); Mucus,Urine Occasional /LPF (Occasional); RBC,Urine 75 /HPF (0-4); Squamous Epithelial Cell,Urine Occasional /HPF (0-10); Uric Acid Crystals,Urine Occasional /HPF (<1); Urine Appearance Clear (Clear); Urine Color Yellow (Yellow)
[2022-06-16 23:56] LABS: Bilirubin,Urine Negative (Negative); Blood, Urine Moderate mg/dL (Negative); Glucose,Urine (UA) Negative (Negative); Ketones,Urine Negative (Negative); Nitrite,Urine Negative (Negative); Protein,Urine Trace mg/dL (Negative); Urine Urobilinogen 0.2 eU/dL (<2.0)
[2022-06-17 00:23] LABS: Basophils # 0.1 10*3/uL (0.0-0.2); Basophils % 0.4 % (0.0-0.8); Eosinophils % 0.1 % (0.00-10.9); Hematocrit 27.6 VOL% (35.7-47.0); Hemoglobin 8.8 GM/DL (12.0-16.0); Immature Granulocytes % 8.6 %; Immature Granulocytes Absolute 1.18 #; Lymphocytes # 0.9 10*3/uL (1.4-4.0); Lymphocytes % 6.8 % (21.3-54.2); Mean Corpuscular HGB Conc 31.9 GM/DL (32-36); Mean Corpuscular Volume 96.2 FL (87-102); Mean Platelet Volume 12.3 FL (9.6-12.0); Monocytes # 0.9 10*3/uL (0.11-0.8); Monocytes % 6.3 % (1.7-12.7); Neutrophils % 77.8 % (38.7-73.9); Platelet Count 173 T/CUMM (130-400); Red Blood Count 2.87 MC/CUMM (3.8-5.5); Red Cell Distribution Width 23.1 % (9.3-17.3); White Blood Count 13.7 T/CUMM (4-12)
[2022-06-17 00:44] LABS: Calcium 8.6 MG/DL (8.5-10.1); Osmolality,Calculated 280.5 MOS/KG (273-304)
[2022-06-17 00:48] LABS: INR 1.2; PT Patient Result 13.4 SECS (10.1-12.1); Partial Thromboplastin Time 33.9 SECS (23.7-32.9)
[2022-06-17] MEDS: NOREPINEPHRINE 8 MG in SODIUM CHLORIDE 0.9% 242 ML IV PRN (01:04)
[2022-06-17 01:14] LABS: Band Neutrophils 8 % (0-10); Lymphocytes 8 % (20-55); Platelet Estimate Adequate; Total Cells Counted 100
[2022-06-17 01:15] LABS: Anisocytosis 1+; Macrocytosis 1+; Microcytosis 1+
[2022-06-17] MEDS: MEPERIDINE 25 MG/1 ML VIAL IV PRN (01:18)
[2022-06-17] MEDS: INSULIN REGULAR 100 UNIT/ML IV SCH ×9 (01:35→22:03)
[2022-06-17 02:26] LABS: CKMB % 14.7 %; High Sensitive Troponin I* 849.7 ng/L (0-54)
[2022-06-17] MEDS: PIPERACILLIN/TAZOBACTAM 3,375 MG in SODIUM CHLORIDE 0.9% 100 ML IV SCH ×3 (03:00→20:03)
[2022-06-17] MEDS: AMIODARONE INJ 450 MG in DEXTROSE 5% 241 ML IV SCH ×2 (05:26→23:09)
[2022-06-17 05:45] LABS: ABG Base Excess -1.8 MMOL/L (-2.5-2.5); ABG HCO3 22.9 MMOL/L (20-26); ABG Oxygen Saturation 99.3 % (95-100); ABG PCO2 48.2 MM HG (35-48); ABG PH 7.315 (7.35-7.45)
[2022-06-17 06:53] LABS: Basophils # 0.1 10*3/uL (0.0-0.2); Basophils % 0.3 % (0.0-0.8); Eosinophils % 0.1 % (0.00-10.9); Hemoglobin 8.8 GM/DL (12.0-16.0); Immature Granulocytes % 8.6 %; Lymphocytes # 1.2 10*3/uL (1.4-4.0); Lymphocytes % 6.8 % (21.3-54.2); Mean Corpuscular HGB Conc 31.4 GM/DL (32-36); Mean Corpuscular Volume 97.2 FL (87-102); Mean Platelet Volume 12.7 FL (9.6-12.0); Monocytes # 0.9 10*3/uL (0.11-0.8); Monocytes % 5.4 % (1.7-12.7); Neutrophils % 78.8 % (38.7-73.9); Platelet Count 191 T/CUMM (130-400); Red Blood Count 2.88 MC/CUMM (3.8-5.5); White Blood Count 17.4 T/CUMM (4-12)
[2022-06-17 07:01] LABS: INR 1.1; PT Patient Result 12.4 SECS (10.1-12.1); Partial Thromboplastin Time 36.3 SECS (23.7-32.9)
[2022-06-17] MEDS: fentaNYL INJ 1,250 MCG in SODIUM CHLORIDE 0.9% 225 ML IV PRN ×2 (07:22→15:30)
[2022-06-17 07:25] LABS: CKMB % 14.57 %; High Sensitive Troponin I* 655.1 ng/L (0-54)
[2022-06-17 07:29] LABS: Osmolality,Calculated 284.3 MOS/KG (273-304)
[2022-06-17] MEDS: MINERAL OIL/PETROLATUM OPH OINT 3.5 GM TUBE BOTH EYES SCH ×3 (08:36→20:04)
[2022-06-17 09:23] LABS: Band Neutrophils 1 % (0-10); Lymphocytes 4 % (20-55); Platelet Estimate Normal; Total Cells Counted 100
[2022-06-17] MEDS: LACTATED RINGERS 1,000 ML IV SCH (11:04)
[2022-06-17] MEDS ORDERED: PANTOPRAZOLE 40 MG VIAL IV SCH (11:30)
[2022-06-17 12:26] LABS: Basophils # 0.1 10*3/uL (0.0-0.2); Basophils % 0.4 % (0.0-0.8); Eosinophils # 0.2 10*3/uL (0.0-0.87); Eosinophils % 0.9 % (0.00-10.9); Hematocrit 29.7 VOL% (35.7-47.0); Hemoglobin 9.5 GM/DL (12.0-16.0); Immature Granulocytes % 6.2 %; Immature Granulocytes Absolute 1.45 #; Lymphocytes # 1.2 10*3/uL (1.4-4.0); Lymphocytes % 5.2 % (21.3-54.2); Mean Corpuscular Volume 95.8 FL (87-102); Mean Platelet Volume 12.7 FL (9.6-12.0); Monocytes # 0.9 10*3/uL (0.11-0.8); Monocytes % 3.9 % (1.7-12.7); NRBC # 0.02 10*3/uL; Neutrophils % 83.4 % (38.7-73.9); Platelet Count 186 T/CUMM (130-400); Red Cell Distribution Width 23.2 % (9.3-17.3); White Blood Count 23.4 T/CUMM (4-12)
[2022-06-17 12:34] LABS: High Sensitive Troponin I* 1553.1 ng/L (0-54)
[2022-06-17 12:43] LABS: Calcium 8.4 MG/DL (8.5-10.1); INR 1.1; Osmolality,Calculated 283.3 MOS/KG (273-304); PT Patient Result 12.5 SECS (10.1-12.1); Partial Thromboplastin Time 34.2 SECS (23.7-32.9); Potassium 3.9 MMOL/L (3.5-5.1)
[2022-06-17 13:07] LABS: Band Neutrophils 7 % (0-10); Lymphocytes 5 % (20-55); Total Cells Counted 100
[2022-06-17 13:08] LABS: Anisocytosis 1+; Platelet Estimate Adequate; Polychromasia Slight; Schistocytes Few
[2022-06-17] MEDS ORDERED: DEXTROSE 5% LACTATED RINGERS 1,000 ML IV SCH (17:00)
[2022-06-17 18:17] LABS: Basophils # 0.1 10*3/uL (0.0-0.2); Basophils % 0.3 % (0.0-0.8); Eosinophils # 0.3 10*3/uL (0.0-0.87); Eosinophils % 1.3 % (0.00-10.9); Hematocrit 27.3 VOL% (35.7-47.0); Hemoglobin 8.9 GM/DL (12.0-16.0); Immature Granulocytes % 5.6 %; Immature Granulocytes Absolute 1.31 #; Lymphocytes # 0.9 10*3/uL (1.4-4.0); Lymphocytes % 3.9 % (21.3-54.2); Mean Corpuscular HGB Conc 32.6 GM/DL (32-36); Mean Corpuscular Volume 95.5 FL (87-102); Mean Platelet Volume 12.6 FL (9.6-12.0); Monocytes # 0.7 10*3/uL (0.11-0.8); Monocytes % 3.1 % (1.7-12.7); NRBC # 0.02 10*3/uL; Neutrophils % 85.8 % (38.7-73.9); Platelet Count 154 T/CUMM (130-400); Red Blood Count 2.86 MC/CUMM (3.8-5.5); Red Cell Distribution Width 23.1 % (9.3-17.3); White Blood Count 23.3 T/CUMM (4-12)
[2022-06-17] MEDS: MIDAZOLAM 100 MG in SODIUM CHLORIDE 0.9% 80 ML IV PRN (18:26)
[2022-06-17 18:27] LABS: INR 1.2; Partial Thromboplastin Time 38.4 SECS (23.7-32.9)
[2022-06-17 18:39] LABS: Calcium 8.4 MG/DL (8.5-10.1); Osmolality,Calculated 286.1 MOS/KG (273-304); Potassium 3.4 MMOL/L (3.5-5.1)
[2022-06-17 18:45] LABS: Band Neutrophils 4 % (0-10); Eosinophils 1 % (0-10); Lymphocytes 3 % (20-55); Total Cells Counted 100
[2022-06-17 18:46] LABS: Platelet Estimate Adequate
[2022-06-17 18:49] LABS: Acanthocytes Few; Burr Cells Few
[2022-06-17 18:50] LABS: Anisocytosis 1+
[2022-06-17 18:51] LABS: Polychromasia Slight
[2022-06-17] MEDS ORDERED: POTASSIUM CHLORIDE RIDER 10 MEQ/100 ML PREMIX IV ONE ×3 (19:56→22:47)
[2022-06-17] MEDS ORDERED: MAGNESIUM SULF RIDER 1 GM/25 ML PREMIX IV ONE ×2 (20:30→23:30)
[2022-06-17] MEDS ORDERED: POTASSIUM CHLORIDE RIDER 20 MEQ/100 ML PREMIX IV ONE (22:47)
[2022-06-17] MEDS ORDERED: ALBUMIN 5% 12.5 GM/250 ML VIAL IV ONE (23:00)
[2022-06-17] MEDS: DEXTROSE 5% LACTATED RINGERS 1,000 ML IV SCH (23:10)
[2022-06-18] MEDS: fentaNYL INJ 1,250 MCG in SODIUM CHLORIDE 0.9% 225 ML IV PRN ×2 (00:16→08:36)
[2022-06-18] MEDS: INSULIN REGULAR 100 UNIT/ML IV SCH ×4 (00:32→06:08)
[2022-06-18 00:38] LABS: Basophils # 0.1 10*3/uL (0.0-0.2); Basophils % 0.2 % (0.0-0.8); Eosinophils % 0.1 % (0.00-10.9); Hematocrit 27.9 VOL% (35.7-47.0); Hemoglobin 8.9 GM/DL (12.0-16.0); Immature Granulocytes % 6.4 %; Immature Granulocytes Absolute 1.55 #; Lymphocytes # 0.7 10*3/uL (1.4-4.0); Lymphocytes % 2.7 % (21.3-54.2); Mean Corpuscular HGB Conc 31.9 GM/DL (32-36); Mean Corpuscular Volume 96.2 FL (87-102); Mean Platelet Volume 12.5 FL (9.6-12.0); Monocytes # 0.8 10*3/uL (0.11-0.8); Monocytes % 3.2 % (1.7-12.7); Neutrophils % 87.4 % (38.7-73.9); Platelet Count 173 T/CUMM (130-400); Red Cell Distribution Width 23.4 % (9.3-17.3); White Blood Count 24.3 T/CUMM (4-12)
[2022-06-18 00:39] LABS: INR 1.2; PT Patient Result 13.1 SECS (10.1-12.1); Partial Thromboplastin Time 38.8 SECS (23.7-32.9)
[2022-06-18 00:40] LABS: Calcium 8.1 MG/DL (8.5-10.1); Osmolality,Calculated 282.4 MOS/KG (273-304); Potassium 4.4 MMOL/L (3.5-5.1)
[2022-06-18] MEDS: NOREPINEPHRINE 8 MG in SODIUM CHLORIDE 0.9% 242 ML IV PRN ×2 (01:05→23:18)
[2022-06-18 01:16] LABS: Band Neutrophils 9 % (0-10); Lymphocytes 4 % (20-55); Platelet Estimate Adequate; Total Cells Counted 100
[2022-06-18 01:17] LABS: Acanthocytes Few; Burr Cells Few; Polychromasia Slight
[2022-06-18 01:18] LABS: Ovalocytes Few
[2022-06-18 01:19] LABS: Anisocytosis 1+
[2022-06-18] MEDS: PIPERACILLIN/TAZOBACTAM 3,375 MG in SODIUM CHLORIDE 0.9% 100 ML IV SCH ×3 (03:50→20:29)
[2022-06-18] MEDS ORDERED: LACTATED RINGERS 500 ML IV ONE (05:00)
[2022-06-18 06:07] LABS: ABG Base Excess -1.8 MMOL/L (-2.5-2.5); ABG HCO3 22.9 MMOL/L (20-26); ABG Oxygen Saturation 99.2 % (95-100); ABG PCO2 34.7 MM HG (35-48); ABG PH 7.416 (7.35-7.45); ABG TCO2 20.7 MMOL/L (23-27)
[2022-06-18] MEDS: DEXTROSE 5% LACTATED RINGERS 1,000 ML IV SCH ×2 (06:09→12:20)
[2022-06-18 06:18] LABS: Basophils # 0.1 10*3/uL (0.0-0.2); Basophils % 0.2 % (0.0-0.8); Eosinophils % 0.1 % (0.00-10.9); Hematocrit 25.2 VOL% (35.7-47.0); Hemoglobin 8.1 GM/DL (12.0-16.0); Immature Granulocytes % 5.9 %; Immature Granulocytes Absolute 1.19 #; Lymphocytes # 0.8 10*3/uL (1.4-4.0); Lymphocytes % 3.8 % (21.3-54.2); Mean Corpuscular HGB Conc 32.1 GM/DL (32-36); Mean Corpuscular Volume 96.2 FL (87-102); Mean Platelet Volume 12.9 FL (9.6-12.0); Monocytes # 0.6 10*3/uL (0.11-0.8); Monocytes % 2.9 % (1.7-12.7); Neutrophils % 87.1 % (38.7-73.9); Platelet Count 156 T/CUMM (130-400); Red Blood Count 2.62 MC/CUMM (3.8-5.5); Red Cell Distribution Width 23.4 % (9.3-17.3); White Blood Count 20.3 T/CUMM (4-12)
[2022-06-18 06:27] LABS: Calcium 8.2 MG/DL (8.5-10.1); Osmolality,Calculated 285.3 MOS/KG (273-304); Phosphorous 3.3 MG/DL (2.5-4.9); Potassium 4.1 MMOL/L (3.5-5.1)
[2022-06-18 06:57] LABS: CKMB % 15.77 %; High Sensitive Troponin I* 228.8 ng/L (0-54)
[2022-06-18 07:09] LABS: INR 1.2; PT Patient Result 13.4 SECS (10.1-12.1); Partial Thromboplastin Time 39.8 SECS (23.7-32.9)
[2022-06-18] MEDS ORDERED: SODIUM CHLORIDE 0.9% 1,000 ML IV PRN (07:14)
[2022-06-18] MEDS ORDERED: MAGNESIUM SULF RIDER 4 GM/100 ML PREMIX IV PRN (07:23)
[2022-06-18] MEDS ORDERED: POTASSIUM CHLORIDE RIDER 20 MEQ/100 ML PREMIX IV PRN (07:23)
[2022-06-18] MEDS ORDERED: POTASSIUM CHLORIDE RIDER 10 MEQ/100 ML PREMIX IV PRN (07:23)
[2022-06-18] MEDS: INSULIN REGULAR 100 UNIT/ML SUBCUT SCH ×5 (08:23→23:36)
[2022-06-18] MEDS: PANTOPRAZOLE 40 MG VIAL IV SCH ×2 (08:31→20:10)
[2022-06-18] MEDS: MINERAL OIL/PETROLATUM OPH OINT 3.5 GM TUBE BOTH EYES SCH ×3 (08:31→20:29)
[2022-06-18 08:58] LABS: Band Neutrophils 1 % (0-10); Elliptocytes Few; Lymphocytes 3 % (20-55); Polychromasia Slight; Total Cells Counted 100
[2022-06-18 08:59] LABS: Microcytosis Slight; Platelet Estimate Adequate; Schistocytes Few
[2022-06-18] MEDS ORDERED: FUROSEMIDE 20 MG/2 ML VIAL IV ONE (09:42)
[2022-06-18 12:55] LABS: Calcium 8.2 MG/DL (8.5-10.1); Osmolality,Calculated 285.1 MOS/KG (273-304); Potassium 4.3 MMOL/L (3.5-5.1)
[2022-06-18 13:10] LABS: Basophils # 0.1 10*3/uL (0.0-0.2); Basophils % 0.3 % (0.0-0.8); Eosinophils % 0.2 % (0.00-10.9); Hematocrit 28.4 VOL% (35.7-47.0); Hemoglobin 9.1 GM/DL (12.0-16.0); Immature Granulocytes % 5.9 %; Immature Granulocytes Absolute 1.14 #; Mean Corpuscular Volume 95.9 FL (87-102); Mean Platelet Volume 12.9 FL (9.6-12.0); Monocytes # 0.7 10*3/uL (0.11-0.8); Monocytes % 3.8 % (1.7-12.7); Neutrophils % 84.8 % (38.7-73.9); Platelet Count 154 T/CUMM (130-400); Red Blood Count 2.96 MC/CUMM (3.8-5.5); Red Cell Distribution Width 22.5 % (9.3-17.3); White Blood Count 19.4 T/CUMM (4-12)
[2022-06-18 13:18] LABS: INR 1.2; PT Patient Result 13.3 SECS (10.1-12.1); Partial Thromboplastin Time 38.7 SECS (23.7-32.9)
[2022-06-18] MEDS: AMIODARONE INJ 450 MG in DEXTROSE 5% 241 ML IV SCH (13:47)
[2022-06-18 16:41] LABS: Albumin 1.8 G/DL (3.4-5.0); Bilirubin,Direct 0.44 MG/DL (0.0-0.20); Bilirubin,Indirect 0.7 MG/DL (0.0-1.0); Bilirubin,Total 1.1 MG/DL (0.20-1.00); Total Protein 4.9 G/DL (6.4-8.2)
[2022-06-18] MEDS: ACETAMINOPHEN 325 MG TABLET PO PRN (20:41)
[2022-06-19] MEDS: INSULIN REGULAR 100 UNIT/ML SUBCUT SCH ×6 (03:35→23:30)
[2022-06-19] MEDS: AMIODARONE INJ 450 MG in DEXTROSE 5% 241 ML IV SCH ×2 (03:49→20:02)
[2022-06-19] MEDS: PIPERACILLIN/TAZOBACTAM 3,375 MG in SODIUM CHLORIDE 0.9% 100 ML IV SCH ×3 (03:49→20:51)
[2022-06-19 04:56] LABS: ABG Base Excess -1.5 MMOL/L (-2.5-2.5); ABG HCO3 23.2 MMOL/L (20-26); ABG Oxygen Saturation 99.2 % (95-100); ABG PCO2 35.1 MM HG (35-48); ABG PH 7.417 (7.35-7.45); ABG TCO2 20.7 MMOL/L (23-27)
[2022-06-19] MEDS: MIDAZOLAM 100 MG in SODIUM CHLORIDE 0.9% 80 ML IV PRN (05:07)
[2022-06-19 05:13] LABS: Basophils % 0.3 % (0.0-0.8); Eosinophils % 0.6 % (0.00-10.9); Hematocrit 28.6 VOL% (35.7-47.0); Hemoglobin 9.1 GM/DL (12.0-16.0); Lymphocytes % 7.3 % (21.3-54.2); Mean Corpuscular HGB Conc 31.8 GM/DL (32-36); Mean Corpuscular Volume 96.3 FL (87-102); Monocytes % 5.1 % (1.7-12.7); Neutrophils % 80.1 % (38.7-73.9); Platelet Count 155 T/CUMM (130-400); Red Blood Count 2.97 MC/CUMM (3.8-5.5); Red Cell Distribution Width 22.4 % (9.3-17.3); White Blood Count 16.3 T/CUMM (4-12)
[2022-06-19 05:14] LABS: Basophils # 0.1 10*3/uL (0.0-0.2); Eosinophils # 0.1 10*3/uL (0.0-0.87); Immature Granulocytes % 6.6 %; Immature Granulocytes Absolute 1.07 #; Lymphocytes # 1.2 10*3/uL (1.4-4.0); Monocytes # 0.8 10*3/uL (0.11-0.8)
[2022-06-19 05:27] LABS: Albumin 1.8 G/DL (3.4-5.0); Bilirubin,Total 1.4 MG/DL (0.20-1.00); Calcium 8.8 MG/DL (8.5-10.1); Osmolality,Calculated 281.5 MOS/KG (273-304); Total Protein 5.1 G/DL (6.4-8.2)
[2022-06-19 05:42] LABS: Band Neutrophils 2 % (0-10); Lymphocytes 5 % (20-55); Platelet Estimate Adequate; Total Cells Counted 100
[2022-06-19] MEDS: fentaNYL INJ 1,250 MCG in SODIUM CHLORIDE 0.9% 225 ML IV PRN (07:25)
[2022-06-19] MEDS: PANTOPRAZOLE 40 MG VIAL IV SCH ×2 (08:28→21:02)
[2022-06-19] MEDS: MINERAL OIL/PETROLATUM OPH OINT 3.5 GM TUBE BOTH EYES SCH ×3 (08:30→21:02)
[2022-06-19] MEDS: ROSUVASTATIN 20 MG TABLET PER TUBE SCH (08:41)
[2022-06-19] MEDS: ASPIRIN CHEW 81 MG TABLET PO SCH (08:41)
[2022-06-19] MEDS: ASCORBIC ACID 500 MG TABLET PO SCH ×2 (09:26→21:02)
[2022-06-19] MEDS: ACETAMINOPHEN 325 MG TABLET PO PRN (14:55)
[2022-06-19] MEDS ORDERED: VANCOMYCIN INJ 1,000 MG in SODIUM CHLORIDE 0.9% 250 ML IV ONE (17:51)
[2022-06-19] MEDS: NOREPINEPHRINE 8 MG in SODIUM CHLORIDE 0.9% 242 ML IV PRN (19:21)
[2022-06-20 05:15] LABS: ABG Base Excess -2.1 MMOL/L (-2.5-2.5); ABG HCO3 22.6 MMOL/L (20-26); ABG Oxygen Saturation 99.3 % (95-100); ABG PCO2 37.4 MM HG (35-48); ABG PH 7.388 (7.35-7.45); ABG TCO2 20.9 MMOL/L (23-27); Basophils % 0.2 % (0.0-0.8); Eosinophils # 0.1 10*3/uL (0.0-0.87); Eosinophils % 0.9 % (0.00-10.9); Hematocrit 25.4 VOL% (35.7-47.0); Hemoglobin 7.9 GM/DL (12.0-16.0); Immature Granulocytes % 4.1 %; Lymphocytes # 0.6 10*3/uL (1.4-4.0); Lymphocytes % 6.4 % (21.3-54.2); Mean Corpuscular HGB Conc 31.1 GM/DL (32-36); Mean Corpuscular Volume 98.4 FL (87-102); Mean Platelet Volume 13.4 FL (9.6-12.0); Monocytes # 0.6 10*3/uL (0.11-0.8); Neutrophils % 82.4 % (38.7-73.9); Platelet Count 108 T/CUMM (130-400); Red Blood Count 2.58 MC/CUMM (3.8-5.5); Red Cell Distribution Width 22.1 % (9.3-17.3); White Blood Count 9.8 T/CUMM (4-12)
[2022-06-20] MEDS: INSULIN REGULAR 100 UNIT/ML SUBCUT SCH ×6 (05:36→23:07)
[2022-06-20] MEDS: PIPERACILLIN/TAZOBACTAM 3,375 MG in SODIUM CHLORIDE 0.9% 100 ML IV SCH (05:37)
[2022-06-20 05:45] LABS: Albumin 1.5 G/DL (3.4-5.0); Bilirubin,Total 0.9 MG/DL (0.20-1.00); Calcium 8.6 MG/DL (8.5-10.1); Osmolality,Calculated 284.5 MOS/KG (273-304); Potassium 4.4 MMOL/L (3.5-5.1); Total Protein 4.8 G/DL (6.4-8.2)
[2022-06-20] MEDS ORDERED: FUROSEMIDE 40 MG/4 ML VIAL IV ONE (07:22)
[2022-06-20] MEDS: PANTOPRAZOLE 40 MG VIAL IV SCH ×2 (08:08→21:17)
[2022-06-20] MEDS: ROSUVASTATIN 20 MG TABLET PER TUBE SCH (08:08)
[2022-06-20] MEDS: MINERAL OIL/PETROLATUM OPH OINT 3.5 GM TUBE BOTH EYES SCH ×3 (08:08→21:17)
[2022-06-20] MEDS: ASPIRIN CHEW 81 MG TABLET PO SCH (08:08)
[2022-06-20] MEDS: ASCORBIC ACID 500 MG TABLET PO SCH ×2 (08:09→21:17)
[2022-06-20] MEDS: MEROPENEM 500 MG in SODIUM CHLORIDE 0.9% 100 ML IV SCH ×3 (10:01→21:16)
[2022-06-20] MEDS: AMIODARONE 200 MG TABLET PO SCH (10:01)
[2022-06-20] MEDS: AMIODARONE INJ 450 MG in DEXTROSE 5% 241 ML IV SCH (10:31)
[2022-06-20] MEDS: ACETAMINOPHEN 325 MG TABLET PO PRN (17:15)
[2022-06-20] MEDS: DIAZEPAM 2 MG TABLET PO PRN (18:17)
[2022-06-21] MEDS ORDERED: METOPROLOL TARTRATE 5 MG/5 ML VIAL IV ONE ×3 (00:26→09:00)
[2022-06-21] MEDS: MORPHINE 2 MG/1 ML SYRINGE IV PRN ×5 (00:31→19:33)
[2022-06-21] MEDS: DIAZEPAM 2 MG TABLET PO PRN ×3 (02:00→22:40)
[2022-06-21] MEDS: MEROPENEM 500 MG in SODIUM CHLORIDE 0.9% 100 ML IV SCH ×4 (03:20→21:27)
[2022-06-21 04:11] LABS: Basophils % 0.3 % (0.0-0.8); Eosinophils # 0.1 10*3/uL (0.0-0.87); Hemoglobin 7.9 GM/DL (12.0-16.0); Immature Granulocytes % 2.5 %; Immature Granulocytes Absolute 0.18 #; Lymphocytes # 0.7 10*3/uL (1.4-4.0); Lymphocytes % 9.9 % (21.3-54.2); Mean Corpuscular HGB Conc 31.6 GM/DL (32-36); Mean Corpuscular Volume 96.9 FL (87-102); Mean Platelet Volume 13.4 FL (9.6-12.0); Monocytes # 0.6 10*3/uL (0.11-0.8); Monocytes % 8.8 % (1.7-12.7); Neutrophils % 76.5 % (38.7-73.9); Platelet Count 110 T/CUMM (130-400); Red Blood Count 2.58 MC/CUMM (3.8-5.5); Red Cell Distribution Width 21.9 % (9.3-17.3); White Blood Count 7.1 T/CUMM (4-12)
[2022-06-21 04:13] LABS: ABG Base Excess 1.5 MMOL/L (-2.5-2.5); ABG HCO3 25.8 MMOL/L (20-26); ABG Oxygen Saturation 99.5 % (95-100); ABG PCO2 37.6 MM HG (35-48); ABG PH 7.441 (7.35-7.45); ABG TCO2 23.9 MMOL/L (23-27)
[2022-06-21 04:24] LABS: Calcium 8.3 MG/DL (8.5-10.1); Osmolality,Calculated 288.1 MOS/KG (273-304)
[2022-06-21 04:30] LABS: Phosphorous 3.2 MG/DL (2.5-4.9)
[2022-06-21] MEDS: INSULIN REGULAR 100 UNIT/ML SUBCUT SCH ×5 (04:48→19:41)
[2022-06-21] MEDS: MAGNESIUM SULF RIDER 2 GM/50 ML PREMIX IV PRN (05:14)
[2022-06-21 07:19] VITALS: BP 157/64
[2022-06-21] MEDS ORDERED: VANCOMYCIN INJ 1,000 MG in SODIUM CHLORIDE 0.9% 250 ML IV SCH (08:00)
[2022-06-21] MEDS: ASCORBIC ACID 500 MG TABLET PO SCH ×2 (08:36→21:33)
[2022-06-21] MEDS: ROSUVASTATIN 20 MG TABLET PER TUBE SCH (08:37)
[2022-06-21] MEDS: PANTOPRAZOLE 40 MG VIAL IV SCH ×2 (08:37→21:31)
[2022-06-21] MEDS: AMIODARONE 200 MG TABLET PO SCH (08:37)
[2022-06-21] MEDS: ASPIRIN CHEW 81 MG TABLET PO SCH (08:37)
[2022-06-21] MEDS: MINERAL OIL/PETROLATUM OPH OINT 3.5 GM TUBE BOTH EYES SCH ×3 (09:06→21:39)
[2022-06-21] MEDS: ACETAMINOPHEN 325 MG TABLET PO PRN (14:29)
[2022-06-22] MEDS: MORPHINE 2 MG/1 ML SYRINGE IV PRN ×5 (00:15→12:19)
[2022-06-22] MEDS: INSULIN REGULAR 100 UNIT/ML SUBCUT SCH ×5 (00:25→16:02)
[2022-06-22] MEDS: MEROPENEM 500 MG in SODIUM CHLORIDE 0.9% 100 ML IV SCH ×3 (03:49→15:07)
[2022-06-22] MEDS: ACETAMINOPHEN 325 MG TABLET PO PRN (03:50)
[2022-06-22 04:38] LABS: Basophils % 0.6 % (0.0-0.8); Eosinophils # 0.1 10*3/uL (0.0-0.87); Eosinophils % 2.1 % (0.00-10.9); Hematocrit 30.4 VOL% (35.7-47.0); Hemoglobin 9.7 GM/DL (12.0-16.0); Immature Granulocytes % 3.6 %; Immature Granulocytes Absolute 0.17 #; Lymphocytes # 0.6 10*3/uL (1.4-4.0); Lymphocytes % 12.2 % (21.3-54.2); Mean Corpuscular HGB Conc 31.9 GM/DL (32-36); Mean Corpuscular Volume 97.1 FL (87-102); Mean Platelet Volume 13.3 FL (9.6-12.0); Monocytes # 0.5 10*3/uL (0.11-0.8); Monocytes % 11.2 % (1.7-12.7); Neutrophils % 70.3 % (38.7-73.9); Platelet Count 104 T/CUMM (130-400); Red Blood Count 3.13 MC/CUMM (3.8-5.5); Red Cell Distribution Width 22.5 % (9.3-17.3); White Blood Count 4.8 T/CUMM (4-12)
[2022-06-22 04:39] LABS: ABG HCO3 25.3 MMOL/L (20-26); ABG Oxygen Saturation 99.1 % (95-100); ABG TCO2 23.6 MMOL/L (23-27)
[2022-06-22 04:56] LABS: Band Neutrophils 1 % (0-10); Eosinophils 1 % (0-10); Lymphocytes 11 % (20-55); Total Cells Counted 100
[2022-06-22 04:59] LABS: Albumin 1.6 G/DL (3.4-5.0); Bilirubin,Total 0.6 MG/DL (0.20-1.00); Calcium 8.6 MG/DL (8.5-10.1); Osmolality,Calculated 284.4 MOS/KG (273-304); Potassium 4.3 MMOL/L (3.5-5.1); Total Protein 5.1 G/DL (6.4-8.2)
[2022-06-22] MEDS ORDERED: METOPROLOL TARTRATE 5 MG/5 ML VIAL IV ONE (05:30)
[2022-06-22] MEDS: MAGNESIUM SULF RIDER 2 GM/50 ML PREMIX IV PRN (05:45)
[2022-06-22] MEDS ORDERED: FUROSEMIDE 40 MG/4 ML VIAL IV ONE (07:36)
[2022-06-22] MEDS ORDERED: METOPROLOL TARTRATE 5 MG/5 ML VIAL IV PRN (08:42)
[2022-06-22] MEDS ORDERED: FONDAPARINUX 2.5 MG/0.5 ML SYRINGE SUBCUT SCH (09:00)
[2022-06-22] MEDS: ASCORBIC ACID 500 MG TABLET PO SCH (09:05)
[2022-06-22] MEDS: ROSUVASTATIN 20 MG TABLET PER TUBE SCH (09:05)
[2022-06-22] MEDS: AMIODARONE 200 MG TABLET PO SCH (09:05)
[2022-06-22] MEDS: ASPIRIN CHEW 81 MG TABLET PO SCH (09:05)
[2022-06-22] MEDS: PANTOPRAZOLE 40 MG VIAL IV SCH (09:19)
[2022-06-22] MEDS: MINERAL OIL/PETROLATUM OPH OINT 3.5 GM TUBE BOTH EYES SCH ×2 (09:22→15:07)
== END 2022-06-22 12:58 | disposition expired | DRG 207 ==
LOC: N.ED 08:48 → N.EDINP 09:16 → SUATTDRO 09:16 → N.ICU 10:18
PROVIDERS: ADMIT Internal Medicine; ATTEND Internal Medicine